=== PATIENT | female | born 1935 | race Caucasian/White ===

== ENCOUNTER 2016-09-16 15:29 | Emergency (ER) | payer MEDICARE, BC ==
[2007-07-04 06:02] VITALS: BP 137/67
[~2016-09-16] VITALS: Ht 154.9 cm; Wt 71.8 kg
[~2016-09-16 15:29] MED LIST: ACID REDUCER; ACTOS30 MG PO; ALLOPURINOL300 MG PO; ASPIRIN 32325 MG/TA1 PO; ASPIRIN 32325 MG/TAB PO; ATACAND 16M16 MG/TAB PO; ATACAND 32 MG PO; ATACAND PO; BENADRYL25 MG PO; BENTYL 20MG TAB20 MG PO; BENTYL 20MG20 MG/TAB PO; BENTYL20 MG PO; BUSPAR10 MG PO; CAL-CITRATE PLU1 TAB PO; CALTRATE 600 +1 TAB PO; CARDI-OMEGA1000 MG PO; CELEXA 20MG20 MG/TAB PO; CELEXA40 MG PO; CIPRO 250MG TA250 MG PO; CLARITIN LIQUI-10 MG PO; COLACE 100100 MG/CAP PO; COZAAR100 MG PO; ECOTRIN325 MG PO; ENTOCORT EC3 MG PO; FISH OIL1000 MG PO; FLAGYL500 MG PO; FLOVENT 220MCG7.9 GM IH; HCTZ12.5TAB PO; HUMIRA40 MG/0.1 SC; HUMIRA40 MG/0.8 MR; INDERAL LA 60MG60 MG PO; INDERAL LA120 MG PO; KLONOPIN 0.5MG0.5 MG PO; KLOR-CON 1010 MEQ PO; LEVBID0.375 MG PO; LEVOTHYROXINE0.05 MG PO; LORTAB PO; MELOXICAM PO; MIRALAX 17GM PK1 PKT PO; MOBIC15 MG PO; NORCO 325 MG-51 TAB PO; NORVASC 5MG5 MG/TAB PO; NORVASC5 MG PO; OMEGA 31000 MG PO; PERCOCET 325 MG1 TA2 PO; PREDNISONE10 MG PO; PREDNISONE20 MG PO; PREMARIN .3MG0.3 MG PO; PREMARIN0.3 MG PO; PRIL40 PO; PRILOSEC 20MG20 MG PO; PROBIOTIC FORMU1 CAP PO; PROZAC 20MG20 MG PO; RT SPIRIVA18 MCG IH; SYNTHROID0.05 MG/TA PO; SYNTHROID0.075 MG/T PO; ULTRAM 50MG TAB50 MG PO; ZOCOR 20MG20 MG PO; ZOCOR 40MG40 MG PO; ZOCOR40 MG PO; ZOFRAN 4MG T4 MG/TAB PO
[2016-09-16 15:38] VITALS: TEMP 97.6
[2016-09-16 16:19] LABS: BASO % 0.4 % (0.0-2.0); EOS # 0.1 (0.0-0.7); EOS % 1.4 % (0-4.0); GRAN % 71.4 % (42.2-75.2); HEMATOCRIT 39.7 % (37.0-47.0); HEMOGLOBIN 13.1 g/dl (12.5-16.0); LYMPH # 1.2 (1.2-3.4); LYMPH % 17.5 % (20.0-51.0); MEAN CELL VOLUME 91 fl (80.0-100.0); MEAN CORPUSCULAR HEMOGLOBIN 30 pg (27.0-31.0); MEAN CORPUSCULAR HGB CONC 33 g/dl (33.0-37.0); MEAN PLATELET VOLUME 9.4 fl (7.4-10.4); MONO # 0.6 (0.1-0.6); MONO % 9.2 % (1.7-9.3); PLATELET COUNT 224 K/mm3 (130-400); RED BLOOD COUNT 4.38 M/mm3 (4.10-5.30)
[2016-09-16 16:34] LABS: ADJUSTED CALCIUM 9.4 mg/dL (8.4-10.2); ALANINE AMINOTRANSFERASE 32 U/L (9-52); ALBUMIN 3.8 gm/dL (3.5-5.0); ALKALINE PHOSPHATASE 108 U/L (50-136); ANION GAP 11 mmol/L (7-16); BILIRUBIN,TOTAL 0.6 mg/dL (0.0-1.0); BLOOD UREA NITROGEN 13 mg/dL (7-17); C-REACTIVE PROTEIN 1.3 mg/dL (0.0-0.9); CALCIUM 9.2 mg/dL (8.4-10.2); CARBON DIOXIDE 22 mmol/L (22-30); CHLORIDE 103 mmol/L (98-107); CREATININE, serum 0.71 mg/dL (0.52-1.25); GLUCOSE 130 mg/dL (74-106); POTASSIUM 3.9 mmol/L (3.4-5.0); SODIUM 136 mmol/L (137-145); TOTAL PROTEIN 6.7 gm/dL (6.4-8.2)
[2016-09-16 17:04] LABS: LIPASE < 10 U/L (23-300)
[2016-09-16 17:32] LABS: PH 7 (5-8); SQUAMOUS EPITHELIAL 0-2 /hpf; URINE APPEARANCE Clear; URINE BACTERIA None Seen /hpf; URINE BILIRUBIN Negative (NEGATIVE); URINE BLOOD Negative (NEGATIVE); URINE COLOR Straw; URINE GLUCOSE Negative (NEGATIVE); URINE KETONE Negative (NEGATIVE); URINE RBC 0-2 /hpf; URINE UROBILINOGEN Negative (NEGATIVE); URINE WBC 0-2 /hpf
[2016-09-16] MEDS ORDERED: PRILOSEC 20MG20 MG PO (17:37)
[2016-09-16 17:47] VITALS: BP 109/81; PULSE 88
[2016-09-17] MEDS ORDERED: HUMIRA40 MG/0.1 SQ (17:04)
[2016-09-17] MEDS ORDERED: PRIL40 PO (17:07)
[2016-09-17] MEDS ORDERED: PREMARIN .3MG0.3 MG PO (18:09)
[2016-09-17] MEDS ORDERED: CITRACAL + D CA1 TAB PO (18:10)
== END 2016-09-16 17:58 | disposition home or self-care (01) ==
LOC: COL.ER 15:29
PROVIDERS: Family Medicine
DX: Z02.89 Encounter for other administrative examinations (principal)
CPT/HCPCS: C9113; J1170; J2405; J7030

== ENCOUNTER 2016-09-17 16:44 | Inpatient (IN) | payer MEDICARE, BC ==
[~2016-09-17] VITALS: Ht 154.9 cm; Wt 70.8 kg
[2016-09-17] MEDS ORDERED: HUMIRA40 MG/0.1 SQ (17:04)
[2016-09-17] MEDS ORDERED: PRIL40 PO (17:07)
[2016-09-17 17:40] LABS: BASO % 0.5 % (0.0-2.0); EOS # 0.1 (0.0-0.7); GRAN # 5.7 (1.4-6.5); GRAN % 70.5 % (42.2-75.2); HEMOGLOBIN 13.2 g/dl (12.5-16.0); LYMPH # 1.5 (1.2-3.4); MEAN CELL VOLUME 90 fl (80.0-100.0); MEAN CORPUSCULAR HEMOGLOBIN 30 pg (27.0-31.0); MEAN CORPUSCULAR HGB CONC 34 g/dl (33.0-37.0); MEAN PLATELET VOLUME 9.5 fl (7.4-10.4); MONO # 0.7 (0.1-0.6); MONO % 8.8 % (1.7-9.3); PLATELET COUNT 214 K/mm3 (130-400); RED BLOOD COUNT 4.34 M/mm3 (4.10-5.30); REDCELL DISTRIBUTION WIDTH-CV 15.2 % (11.5-14.5); WHITE BLOOD COUNT 8.1 K/mm3 (4.8-10.8)
[2016-09-17 17:52] LABS: ADJUSTED CALCIUM 9.4 mg/dL (8.4-10.2); ALANINE AMINOTRANSFERASE 29 U/L (9-52); ALBUMIN 3.6 gm/dL (3.5-5.0); ALKALINE PHOSPHATASE 108 U/L (50-136); ANION GAP 11 mmol/L (7-16); BILIRUBIN,TOTAL 0.7 mg/dL (0.0-1.0); BLOOD UREA NITROGEN 12 mg/dL (7-17); C-REACTIVE PROTEIN 1.2 mg/dL (0.0-0.9); CALCIUM 9.1 mg/dL (8.4-10.2); CARBON DIOXIDE 21 mmol/L (22-30); CHLORIDE 104 mmol/L (98-107); GLUCOSE 116 mg/dL (74-106); SODIUM 136 mmol/L (137-145); TOTAL PROTEIN 6.6 gm/dL (6.4-8.2)
[2016-09-17 17:55] LABS: AMYLASE < 30 U/L (30-110)
[2016-09-17 18:09] LABS: LIPASE < 10 U/L (23-300)
[2016-09-17] MEDS ORDERED: PREMARIN .3MG0.3 MG PO (18:09)
[2016-09-17] MEDS ORDERED: CITRACAL + D CA1 TAB PO (18:10)
[2016-09-17 20:35] VITALS: BP 139/81; PULSE 84; TEMP 102.1
[2016-09-17 21:45] VITALS: BP 132/74; PULSE 107; TEMP 97.8
[2016-09-18] VITALS (7 sets, daily range): BP systolic 104–138; BP diastolic 58–72; PULSE 95–106; TEMP 97.8–98.5
[2016-09-18 07:07] LABS: HEMATOCRIT 37.3 % (37.0-47.0); HEMOGLOBIN 12.4 g/dl (12.5-16.0); MEAN CELL VOLUME 91 fl (80.0-100.0); MEAN CORPUSCULAR HEMOGLOBIN 30 pg (27.0-31.0); MEAN CORPUSCULAR HGB CONC 33 g/dl (33.0-37.0); MEAN PLATELET VOLUME 10.1 fl (7.4-10.4); PLATELET COUNT 205 K/mm3 (130-400); RED BLOOD COUNT 4.12 M/mm3 (4.10-5.30); REDCELL DISTRIBUTION WIDTH-CV 15.1 % (11.5-14.5); WHITE BLOOD COUNT 4.8 K/mm3 (4.8-10.8)
[2016-09-18 07:14] LABS: ADD PATHOLOGY DIFF REVIEW NO
[2016-09-18 07:17] LABS: CREATININE, serum 0.57 mg/dL (0.52-1.25); POTASSIUM 3.9 mmol/L (3.4-5.0)
[2016-09-18 07:47] LABS: BAND 8 % (0-10); NEUTROPHILS 81 % (42.0-75.2); PLATELET ESTIMATE NORMAL (NORMAL); TOTAL CELLS COUNTED 100
[2016-09-19 04:42] VITALS: BP 131/68; PULSE 97; TEMP 98.8
[2016-09-19 08:23] VITALS: BP 137/76; PULSE 98; TEMP 98.3
[2016-09-19 12:49] VITALS: BP 139/66; PULSE 95; TEMP 98.1
[2016-09-19 16:14] VITALS: BP 150/78; PULSE 100; TEMP 97.9
[2016-09-19 20:24] VITALS: BP 136/70; PULSE 94; TEMP 97.9
[2016-09-20 00:08] VITALS: BP 132/72; PULSE 94; TEMP 98
[2016-09-20 08:00] VITALS: BP 135/57; PULSE 100; TEMP 97.8
[2016-09-20 12:18] VITALS: BP 123/73; PULSE 98; TEMP 98.2
[2016-09-20] MEDS ORDERED: PREDNISONE10 MG PO (14:05)
== END 2016-09-20 15:37 | disposition home or self-care (01) | DRG 386 ==
LOC: COL.ER 16:44 → MEDICAL 20:03
PROVIDERS: Emergency Medicine; Nurse Practitioner Family
DX: K50.012 Crohn's disease of small intestine with intestinal obstruction (principal); I10 Essential (primary) hypertension; E11.9 Type 2 diabetes mellitus without complications; Z87.891 Personal history of nicotine dependence
CPT/HCPCS: 99223-AI; 99232-AI; 99239; C9113; G0378; J1170; J2405; J2550; J2765; J2920; J2930; J7030; Q9967

== ENCOUNTER 2017-12-14 12:38 | Outpatient (CLI) | payer MEDICARE, BC ==
[2007-07-04 06:02] VITALS: BP 137/67
[~2017-12-14 12:38] MED LIST changes: +CITRACAL + D CA1 TAB PO; +HUMIRA40 MG/0.1 SQ
[2017-12-14 13:15] LABS: BASO % 0.5 % (0.0-2.0); EOS # 0.1 (0.0-0.7); GRAN # 4.3 (1.4-6.5); LYMPH # 1.5 (1.2-3.4); LYMPH % 22.6 % (20.0-51.0); MEAN CELL VOLUME 89 fl (80.0-100.0); MEAN CORPUSCULAR HGB CONC 32 g/dl (33.0-37.0); MEAN PLATELET VOLUME 9.8 fl (7.4-10.4); MONO # 0.6 (0.1-0.6); MONO % 9.6 % (1.7-9.3); PLATELET COUNT 219 K/mm3 (130-400); RED BLOOD COUNT 3.93 M/mm3 (4.10-5.30); REDCELL DISTRIBUTION WIDTH-CV 13.7 % (11.5-14.5)
[2017-12-14 13:25] LABS: HEMATOCRIT 34.8 % (37.0-47.0); HEMOGLOBIN 11.1 g/dl (12.5-16.0); MEAN CORPUSCULAR HEMOGLOBIN 28 pg (27.0-31.0)
[2017-12-14 13:30] LABS: ALBUMIN 3.6 gm/dL (3.5-5.0); BILIRUBIN,TOTAL 0.3 mg/dL (0.0-1.0); CALCIUM 9.3 mg/dL (8.4-10.2); CREATININE, serum 0.77 mg/dL (0.52-1.25); TOTAL PROTEIN 6.6 gm/dL (6.4-8.2)
[2017-12-14 14:00] VITALS: BP 124/46; PULSE 79; TEMP 97.7
== END 2017-12-14 15:11 | disposition home or self-care (01) ==
LOC: EUO 12:38
PROVIDERS: Internal Medicine
DX: K50.90 Crohn's disease, unspecified, without complications (principal); Z88.5 Allergy status to narcotic agent; Z88.0 Allergy status to penicillin; Z88.8 Allergy status to other drugs, medicaments and biological substances
CPT/HCPCS: J1200; J3380; J7050

== ENCOUNTER 2018-02-08 12:41 | Outpatient (CLI) | payer MEDICARE, BC ==
[2007-07-04 06:02] VITALS: BP 137/67
[~2018-02-08] VITALS: Ht 157.5 cm; Wt 73.0 kg
[2018-02-08 13:11] LABS: BASO % 0.4 % (0.0-2.0); EOS # 0.2 (0.0-0.7); GRAN # 3.2 (1.4-6.5); GRAN % 64.2 % (42.2-75.2); HEMOGLOBIN 11.2 g/dl (12.5-16.0); LYMPH # 1.1 (1.2-3.4); LYMPH % 21.3 % (20.0-51.0); MEAN CELL VOLUME 88 fl (80.0-100.0); MEAN CORPUSCULAR HEMOGLOBIN 28 pg (27.0-31.0); MEAN CORPUSCULAR HGB CONC 33 g/dl (33.0-37.0); MEAN PLATELET VOLUME 9.9 fl (7.4-10.4); MONO # 0.5 (0.1-0.6); MONO % 10.9 % (1.7-9.3); PLATELET COUNT 193 K/mm3 (130-400); RED BLOOD COUNT 3.94 M/mm3 (4.10-5.30); REDCELL DISTRIBUTION WIDTH-CV 15.4 % (11.5-14.5)
[2018-02-08 13:12] LABS: HEMATOCRIT 34.5 % (37.0-47.0)
[2018-02-08 13:17] LABS: ALBUMIN 3.4 gm/dL (3.5-5.0); BILIRUBIN,TOTAL 0.3 mg/dL (0.0-1.0); CREATININE, serum 0.75 mg/dL (0.52-1.25); POTASSIUM 3.5 mmol/L (3.4-5.0); TOTAL PROTEIN 6.7 gm/dL (6.4-8.2)
[2018-02-08 14:00] VITALS: BP 141/62; PULSE 86; TEMP 98.2
== END 2018-02-08 14:49 | disposition home or self-care (01) ==
LOC: EUO 12:41
PROVIDERS: Internal Medicine
DX: K50.90 Crohn's disease, unspecified, without complications (principal)
CPT/HCPCS: J1200; J3380; J7050

== ENCOUNTER 2018-04-05 12:50 | Outpatient (CLI) | payer MEDICARE, BC ==
[2007-07-04 06:02] VITALS: BP 137/67
[~2018-04-05] VITALS: Ht 157.5 cm; Wt 75.0 kg
[2018-04-05 13:19] LABS: BASO # 0.1 (0.0-0.2); BASO % 0.7 % (0.0-2.0); EOS # 0.2 (0.0-0.7); EOS % 2.4 % (0-4.0); GRAN # 4.6 (1.4-6.5); GRAN % 67.6 % (42.2-75.2); HEMATOCRIT 37.4 % (37.0-47.0); HEMOGLOBIN 12.3 g/dl (12.5-16.0); LYMPH # 1.5 (1.2-3.4); LYMPH % 21.4 % (20.0-51.0); MEAN CELL VOLUME 88 fl (80.0-100.0); MEAN CORPUSCULAR HEMOGLOBIN 29 pg (27.0-31.0); MEAN CORPUSCULAR HGB CONC 33 g/dl (33.0-37.0); MEAN PLATELET VOLUME 10.2 fl (7.4-10.4); MONO # 0.5 (0.1-0.6); MONO % 7.8 % (1.7-9.3); PLATELET COUNT 198 K/mm3 (130-400); RED BLOOD COUNT 4.24 M/mm3 (4.10-5.30); REDCELL DISTRIBUTION WIDTH-CV 14.4 % (11.5-14.5)
[2018-04-05 13:26] LABS: ALBUMIN 3.9 gm/dL (3.5-5.0); BILIRUBIN,TOTAL 0.5 mg/dL (0.0-1.0); CALCIUM 9.1 mg/dL (8.4-10.2); CREATININE, serum 0.78 mg/dL (0.52-1.25); TOTAL PROTEIN 7.1 gm/dL (6.4-8.2)
[2018-04-05 13:44] VITALS: BP 102/52; PULSE 62; TEMP 98
== END 2018-04-05 14:59 | disposition home or self-care (01) ==
LOC: EUO 12:50
PROVIDERS: Internal Medicine
DX: K50.90 Crohn's disease, unspecified, without complications (principal); Z79.899 Other long term (current) drug therapy
CPT/HCPCS: J1200; J3380; J7050

== ENCOUNTER 2018-05-31 12:56 | Outpatient (CLI) | payer MEDICARE, BC ==
[2007-07-04 06:02] VITALS: BP 137/67
[~2018-05-31] VITALS: Ht 157.5 cm; Wt 72.9 kg
[2018-05-31 13:26] LABS: BASO % 0.5 % (0.0-2.0); EOS # 0.1 (0.0-0.7); EOS % 1.4 % (0-4.0); GRAN # 4.5 (1.4-6.5); GRAN % 69.8 % (42.2-75.2); HEMATOCRIT 37.1 % (37.0-47.0); LYMPH # 1.3 (1.2-3.4); LYMPH % 19.5 % (20.0-51.0); MEAN CELL VOLUME 90 fl (80.0-100.0); MEAN CORPUSCULAR HEMOGLOBIN 29 pg (27.0-31.0); MEAN CORPUSCULAR HGB CONC 32 g/dl (33.0-37.0); MEAN PLATELET VOLUME 9.5 fl (7.4-10.4); MONO # 0.6 (0.1-0.6); MONO % 8.5 % (1.7-9.3); PLATELET COUNT 203 K/mm3 (130-400); RED BLOOD COUNT 4.14 M/mm3 (4.10-5.30)
[2018-05-31 13:40] LABS: ALBUMIN 3.8 gm/dL (3.5-5.0); BILIRUBIN,TOTAL 0.3 mg/dL (0.0-1.0); CALCIUM 9.2 mg/dL (8.4-10.2); CREATININE, serum 0.75 mg/dL (0.52-1.25); POTASSIUM 3.8 mmol/L (3.4-5.0); TOTAL PROTEIN 6.7 gm/dL (6.4-8.2)
[2018-05-31 14:14] VITALS: BP 132/61; PULSE 74; TEMP 97.4
== END 2018-05-31 14:16 | disposition home or self-care (01) ==
LOC: EUO 12:56
PROVIDERS: Internal Medicine
DX: K50.90 Crohn's disease, unspecified, without complications (principal)
CPT/HCPCS: J1200; J3380; J7050

== ENCOUNTER 2018-07-06 09:53 | Emergency (ER) | payer MEDICARE, BC ==
[2007-07-04 06:02] VITALS: BP 137/67
[~2018-07-06] VITALS: Ht 157.5 cm; Wt 74.1 kg
[2018-07-06 09:58] VITALS: TEMP 97
[2018-07-06 10:50] LABS: BASO % 0.3 % (0.0-2.0); EOS % 0.1 % (0-4.0); GRAN # 7.6 (1.4-6.5); GRAN % 84.3 % (42.2-75.2); HEMATOCRIT 41.8 % (37.0-47.0); HEMOGLOBIN 14.1 g/dl (12.5-16.0); LYMPH % 10.7 % (20.0-51.0); MEAN CELL VOLUME 88 fl (80.0-100.0); MEAN CORPUSCULAR HEMOGLOBIN 30 pg (27.0-31.0); MEAN CORPUSCULAR HGB CONC 34 g/dl (33.0-37.0); MEAN PLATELET VOLUME 9.6 fl (7.4-10.4); MONO # 0.4 (0.1-0.6); MONO % 4.3 % (1.7-9.3); PLATELET COUNT 226 K/mm3 (130-400); RED BLOOD COUNT 4.73 M/mm3 (4.10-5.30); REDCELL DISTRIBUTION WIDTH-CV 13.6 % (11.5-14.5)
[2018-07-06 11:03] LABS: ALANINE AMINOTRANSFERASE 30 U/L (9-52); ALBUMIN 4.4 gm/dL (3.5-5.0); ALKALINE PHOSPHATASE 125 U/L (50-136); ANION GAP 11 mmol/L (7-16); AST,SGOT 20 U/L (15-37); BILIRUBIN,TOTAL 0.7 mg/dL (0.0-1.0); BLOOD UREA NITROGEN 18 mg/dL (7-17); CALCIUM 9.8 mg/dL (8.4-10.2); CARBON DIOXIDE 24 mmol/L (22-30); CHLORIDE 106 mmol/L (98-107); CREATININE, serum 0.63 mg/dL (0.52-1.25); GLUCOSE 126 mg/dL (74-106); POTASSIUM 3.5 mmol/L (3.4-5.0); SODIUM 141 mmol/L (137-145); TOTAL PROTEIN 7.8 gm/dL (6.4-8.2)
[2018-07-06 11:06] LABS: C-REACTIVE PROTEIN < 0.5 mg/dL (0.0-0.9)
[2018-07-06 11:12] LABS: TROPONIN-I < 0.012 ng/mL (0.000-0.034)
[2018-07-06 11:19] LABS: COLLECTION METHOD CLEAN CATCH
[2018-07-06 11:30] LABS: TSH w REFLEX 0.977 uIU/mL (0.465-4.680)
[2018-07-06] MEDS ORDERED: PRIL40 PO (11:36)
[2018-07-06 11:38] LABS: PH 7 (5-8); SQUAMOUS EPITHELIAL 0-2 /hpf; URINE APPEARANCE Clear; URINE BACTERIA None Seen /hpf; URINE BILIRUBIN Negative (NEGATIVE); URINE BLOOD Negative (NEGATIVE); URINE COLOR Yellow; URINE GLUCOSE Negative (NEGATIVE); URINE KETONE Trace (NEGATIVE); URINE LEUKOCYTE ESTERASE Negative (NEGATIVE); URINE NITRATE Negative (NEGATIVE); URINE PROTEIN(semi-quant) Negative (NEGATIVE); URINE UROBILINOGEN Negative (NEGATIVE)
[2018-07-06] MEDS ORDERED: HCTZ12.5TAB PO (11:40)
[2018-07-06] MEDS ORDERED: ANTIVERT 12.512.5 MG PO (12:26)
[2018-07-06 13:17] VITALS: BP 161/89; PULSE 80
== END 2018-07-06 13:10 | disposition home or self-care (01) ==
LOC: COL.ER 09:53
PROVIDERS: Physician Assistant
DX: R42 Dizziness and giddiness (principal); E11.9 Type 2 diabetes mellitus without complications; I10 Essential (primary) hypertension; E03.9 Hypothyroidism, unspecified; K50.90 Crohn's disease, unspecified, without complications; M19.90 Unspecified osteoarthritis, unspecified site; Z88.0 Allergy status to penicillin; Z79.51 Long term (current) use of inhaled steroids
CPT/HCPCS: J2060; J7030

== ENCOUNTER 2018-07-26 12:44 | Outpatient (CLI) | payer MEDICARE, BC ==
[2007-07-04 06:02] VITALS: BP 137/67
[~2018-07-26] VITALS: Ht 157.5 cm; Wt 76.0 kg
[~2018-07-26 12:44] MED LIST changes: +ANTIVERT 12.512.5 MG PO
[2018-07-26 13:11] LABS: BASO # 0.1 (0.0-0.2); BASO % 0.7 % (0.0-2.0); EOS # 0.2 (0.0-0.7); EOS % 2.6 % (0-4.0); GRAN # 4.6 (1.4-6.5); GRAN % 66.2 % (42.2-75.2); HEMOGLOBIN 11.8 g/dl (12.5-16.0); LYMPH # 1.6 (1.2-3.4); LYMPH % 22.8 % (20.0-51.0); MEAN CELL VOLUME 93 fl (80.0-100.0); MEAN CORPUSCULAR HEMOGLOBIN 30 pg (27.0-31.0); MEAN CORPUSCULAR HGB CONC 32 g/dl (33.0-37.0); MEAN PLATELET VOLUME 9.6 fl (7.4-10.4); MONO # 0.5 (0.1-0.6); MONO % 7.4 % (1.7-9.3); PLATELET COUNT 218 K/mm3 (130-400); RED BLOOD COUNT 3.94 M/mm3 (4.10-5.30); REDCELL DISTRIBUTION WIDTH-CV 13.6 % (11.5-14.5)
[2018-07-26 13:12] LABS: HEMATOCRIT 36.6 % (37.0-47.0)
[2018-07-26] MEDS ORDERED: VITAMIN D 400400 IU PO (13:14)
[2018-07-26] MEDS ORDERED: PRIL40 PO (13:15)
[2018-07-26 13:22] LABS: ALBUMIN 3.7 gm/dL (3.5-5.0); BILIRUBIN,TOTAL 0.3 mg/dL (0.0-1.0); CALCIUM 9.3 mg/dL (8.4-10.2); CREATININE, serum 0.94 mg/dL (0.52-1.25); POTASSIUM 3.8 mmol/L (3.4-5.0); TOTAL PROTEIN 6.7 gm/dL (6.4-8.2)
[2018-07-26 14:25] VITALS: BP 123/52; PULSE 90; TEMP 98.7
[2018-07-26 15:02] VITALS: BP 122/50; PULSE 80; TEMP 98.5
== END 2018-07-26 15:16 | disposition home or self-care (01) ==
LOC: EUO 12:44
PROVIDERS: Internal Medicine
DX: K50.90 Crohn's disease, unspecified, without complications (principal); Z79.899 Other long term (current) drug therapy
CPT/HCPCS: J1200; J3380; J7050

== ENCOUNTER 2018-09-20 12:46 | Outpatient (CLI) | payer MEDICARE, BC ==
[2007-07-04 06:02] VITALS: BP 137/67
[~2018-09-20] VITALS: Ht 157.5 cm; Wt 78.7 kg
[~2018-09-20 12:46] MED LIST changes: +VITAMIN D 400400 IU PO
[2018-09-20 13:16] LABS: BASO % 0.6 % (0.0-2.0); EOS # 0.2 (0.0-0.7); EOS % 2.3 % (0-4.0); GRAN # 4.7 (1.4-6.5); GRAN % 67.6 % (42.2-75.2); HEMATOCRIT 37.5 % (37.0-47.0); HEMOGLOBIN 12.3 g/dl (12.5-16.0); LYMPH # 1.4 (1.2-3.4); LYMPH % 20.2 % (20.0-51.0); MEAN CELL VOLUME 92 fl (80.0-100.0); MEAN CORPUSCULAR HEMOGLOBIN 30 pg (27.0-31.0); MEAN CORPUSCULAR HGB CONC 33 g/dl (33.0-37.0); MEAN PLATELET VOLUME 9.9 fl (7.4-10.4); MONO # 0.6 (0.1-0.6); PLATELET COUNT 204 K/mm3 (130-400); RED BLOOD COUNT 4.07 M/mm3 (4.10-5.30); REDCELL DISTRIBUTION WIDTH-CV 13.7 % (11.5-14.5)
[2018-09-20 13:28] LABS: ALBUMIN 3.8 gm/dL (3.5-5.0); BILIRUBIN,TOTAL 0.3 mg/dL (0.0-1.0); CALCIUM 9.3 mg/dL (8.4-10.2); CREATININE, serum 0.84 mg/dL (0.52-1.25); POTASSIUM 3.9 mmol/L (3.4-5.0); TOTAL PROTEIN 7.1 gm/dL (6.4-8.2)
[2018-09-20 14:58] VITALS: BP 126/38; PULSE 73; TEMP 98
== END 2018-09-20 15:47 | disposition home or self-care (01) ==
LOC: EUO 12:46
PROVIDERS: Internal Medicine
DX: K50.818 Crohn's disease of both small and large intestine with other complication (principal); Z79.899 Other long term (current) drug therapy
CPT/HCPCS: J1200; J3380; J7050

== ENCOUNTER 2018-11-15 13:41 | Outpatient (CLI) | payer MEDICARE, BC ==
[2007-07-04 06:02] VITALS: BP 137/67
[~2018-11-15] VITALS: Ht 157.5 cm; Wt 80.7 kg
[2018-11-15 14:06] LABS: BASO % 0.4 % (0.0-2.0); EOS # 0.1 (0.0-0.7); EOS % 1.4 % (0-4.0); GRAN % 68.2 % (42.2-75.2); HEMOGLOBIN 12.1 g/dl (12.5-16.0); LYMPH # 1.5 (1.2-3.4); LYMPH % 20.9 % (20.0-51.0); MEAN CELL VOLUME 91 fl (80.0-100.0); MEAN CORPUSCULAR HEMOGLOBIN 30 pg (27.0-31.0); MEAN CORPUSCULAR HGB CONC 33 g/dl (33.0-37.0); MEAN PLATELET VOLUME 9.8 fl (7.4-10.4); MONO # 0.7 (0.1-0.6); MONO % 8.8 % (1.7-9.3); PLATELET COUNT 202 K/mm3 (130-400); RED BLOOD COUNT 4.02 M/mm3 (4.10-5.30); REDCELL DISTRIBUTION WIDTH-CV 13.4 % (11.5-14.5)
[2018-11-15 14:07] LABS: HEMATOCRIT 36.7 % (37.0-47.0)
[2018-11-15 14:15] LABS: ALBUMIN 3.8 gm/dL (3.5-5.0); BILIRUBIN,TOTAL 0.3 mg/dL (0.0-1.0); CALCIUM 9.3 mg/dL (8.4-10.2); CREATININE, serum 0.8 (0.52-1.25); POTASSIUM 3.8 mmol/L (3.4-5.0); TOTAL PROTEIN 6.8 gm/dL (6.4-8.2)
[2018-11-15 15:30] VITALS: BP 128/56; PULSE 66; TEMP 98.4
== END 2018-11-15 15:50 | disposition home or self-care (01) ==
LOC: EUO 13:41
PROVIDERS: Internal Medicine
DX: K50.90 Crohn's disease, unspecified, without complications (principal); Z79.899 Other long term (current) drug therapy
CPT/HCPCS: J1200; J3380; J7050

== ENCOUNTER 2019-01-10 13:55 | Outpatient (CLI) | payer MEDICARE, BC ==
[2007-07-04 06:02] VITALS: BP 137/67
[~2019-01-10] VITALS: Ht 157.5 cm; Wt 81.3 kg
[2019-01-10 14:39] LABS: BASO % 0.4 % (0.0-2.0); EOS # 0.1 (0.0-0.7); EOS % 1.9 % (0-4.0); GRAN # 4.6 (1.4-6.5); GRAN % 66.9 % (42.2-75.2); LYMPH # 1.4 (1.2-3.4); LYMPH % 20.6 % (20.0-51.0); MEAN CELL VOLUME 92 fl (80.0-100.0); MEAN CORPUSCULAR HEMOGLOBIN 31 pg (27.0-31.0); MEAN CORPUSCULAR HGB CONC 33 g/dl (33.0-37.0); MEAN PLATELET VOLUME 9.6 fl (7.4-10.4); MONO # 0.7 (0.1-0.6); MONO % 9.8 % (1.7-9.3); PLATELET COUNT 200 K/mm3 (130-400); RED BLOOD COUNT 3.89 M/mm3 (4.10-5.30); REDCELL DISTRIBUTION WIDTH-CV 13.4 % (11.5-14.5)
[2019-01-10 14:48] LABS: ALBUMIN 3.7 gm/dL (3.5-5.0); BILIRUBIN,TOTAL 0.4 mg/dL (0.0-1.0); CALCIUM 9.3 mg/dL (8.4-10.2); CREATININE, serum 0.89 (0.52-1.25); HEMATOCRIT 35.9 % (37.0-47.0); POTASSIUM 3.8 mmol/L (3.4-5.0); TOTAL PROTEIN 6.7 gm/dL (6.4-8.2)
[2019-01-10 15:58] VITALS: BP 110/48; PULSE 79; TEMP 98
== END 2019-01-10 18:00 | disposition home or self-care (01) ==
LOC: EUO 13:55
PROVIDERS: Internal Medicine
DX: K50.90 Crohn's disease, unspecified, without complications (principal); Z79.899 Other long term (current) drug therapy
CPT/HCPCS: J1200; J3380; J7050

== ENCOUNTER → 2019-01-19 | Outpatient (CLI) | payer MEDICARE, BC ==
[2019-01-19 17:31] LABS: BASO % 0.5 % (0.0-2.0); EOS # 0.1 (0.0-0.7); EOS % 1.5 % (0-4.0); GRAN # 5.5 (1.4-6.5); GRAN % 68.5 % (42.2-75.2); HEMOGLOBIN 12.1 g/dl (12.5-16.0); LYMPH # 1.5 (1.2-3.4); LYMPH % 18.5 % (20.0-51.0); MEAN CELL VOLUME 93 fl (80.0-100.0); MEAN CORPUSCULAR HEMOGLOBIN 31 pg (27.0-31.0); MEAN CORPUSCULAR HGB CONC 33 g/dl (33.0-37.0); MEAN PLATELET VOLUME 10.4 fl (7.4-10.4); MONO # 0.9 (0.1-0.6); MONO % 10.8 % (1.7-9.3); PLATELET COUNT 213 K/mm3 (130-400); RED BLOOD COUNT 3.92 M/mm3 (4.10-5.30); REDCELL DISTRIBUTION WIDTH-CV 13.3 % (11.5-14.5)
[2019-01-19 17:48] LABS: HEMATOCRIT 36.3 % (37.0-47.0)
[2019-01-19 17:56] LABS: ALANINE AMINOTRANSFERASE 11 U/L (9-52); ALBUMIN 3.9 gm/dL (3.5-5.0); ALKALINE PHOSPHATASE 117 U/L (50-136); ANION GAP 12 mmol/L (7-16); AST,SGOT 18 U/L (15-37); BILIRUBIN,TOTAL 0.3 mg/dL (0.0-1.0); BLOOD UREA NITROGEN 20 mg/dL (7-17); CALCIUM 9.4 mg/dL (8.4-10.2); CARBON DIOXIDE 26 mmol/L (22-30); CHLORIDE 100 mmol/L (98-107); CREATININE, serum 0.95 (0.52-1.25); GLUCOSE 107 mg/dL (74-106); LIPASE 47 U/L (23-300); POTASSIUM 4.1 mmol/L (3.4-5.0); SODIUM 137 mmol/L (137-145)
[2019-01-19 18:21] LABS: TROPONIN-I < 0.012 ng/mL (0.000-0.035)
== END ==
LOC: ZCOL.LAB 16:45
PROVIDERS: Nurse Practitioner Family
DX: R07.9 Chest pain, unspecified (principal)

== ENCOUNTER 2019-03-07 13:49 | Outpatient (CLI) | payer MEDICARE, BC ==
[2007-07-04 06:02] VITALS: BP 137/67
[~2019-03-07] VITALS: Ht 157.5 cm; Wt 80.0 kg
[2019-03-07 14:15] VITALS: BP 162/78; PULSE 52; TEMP 98
[2019-03-07 14:16] LABS: BASO % 0.5 % (0.0-2.0); EOS # 0.1 (0.0-0.7); EOS % 1.8 % (0-4.0); GRAN # 5.4 (1.4-6.5); GRAN % 68.3 % (42.2-75.2); HEMATOCRIT 37.7 % (37.0-47.0); HEMOGLOBIN 12.5 g/dl (12.5-16.0); LYMPH # 1.5 (1.2-3.4); LYMPH % 19.5 % (20.0-51.0); MEAN CELL VOLUME 94 fl (80.0-100.0); MEAN CORPUSCULAR HEMOGLOBIN 31 pg (27.0-31.0); MEAN CORPUSCULAR HGB CONC 33 g/dl (33.0-37.0); MEAN PLATELET VOLUME 10.9 fl (7.4-10.4); MONO # 0.8 (0.1-0.6); MONO % 9.6 % (1.7-9.3); PLATELET COUNT 244 K/mm3 (130-400); RED BLOOD COUNT 4.02 M/mm3 (4.10-5.30); REDCELL DISTRIBUTION WIDTH-CV 12.8 % (11.5-14.5)
[2019-03-07 15:33] LABS: ALBUMIN 3.9 gm/dL (3.5-5.0); BILIRUBIN,TOTAL 0.4 mg/dL (0.0-1.0); CALCIUM 9.4 mg/dL (8.4-10.2); CREATININE, serum 0.82 (0.52-1.25)
[2019-03-07 16:27] VITALS: BP 167/79; PULSE 56; TEMP 98
== END 2019-03-07 16:32 | disposition home or self-care (01) ==
LOC: EUO 13:49
PROVIDERS: Internal Medicine
DX: K50.90 Crohn's disease, unspecified, without complications (principal); Z79.899 Other long term (current) drug therapy
CPT/HCPCS: J3380

== ENCOUNTER → 2019-04-07 | Outpatient (CLI) | payer MEDICARE, BC | LOC: MC.RAD 04-05 13:00 | DX: R07.89 Other chest pain (principal) | CPT/HCPCS: G0279 ==

== ENCOUNTER → 2019-04-11 | Outpatient (CLI) | payer MEDICARE, BC | LOC: COL.RAD 08:15 | DX: K21.9 Gastro-esophageal reflux disease without esophagitis (principal); K22.8 Other specified diseases of esophagus ==

== ENCOUNTER 2019-05-02 13:46 | Outpatient (CLI) | payer MEDICARE, BC ==
[2007-07-04 06:02] VITALS: BP 137/67
[~2019-05-02] VITALS: Ht 157.5 cm; Wt 80.2 kg
[2019-05-02 14:20] LABS: BASO % 0.5 % (0.0-2.0); EOS # 0.1 (0.0-0.7); EOS % 1.3 % (0-4.0); GRAN # 5.7 (1.4-6.5); GRAN % 72.7 % (42.2-75.2); HEMATOCRIT 37.6 % (37.0-47.0); HEMOGLOBIN 12.6 g/dl (12.5-16.0); LYMPH # 1.4 (1.2-3.4); LYMPH % 17.2 % (20.0-51.0); MEAN CELL VOLUME 94 fl (80.0-100.0); MEAN CORPUSCULAR HEMOGLOBIN 31 pg (27.0-31.0); MEAN CORPUSCULAR HGB CONC 34 g/dl (33.0-37.0); MEAN PLATELET VOLUME 9.4 fl (7.4-10.4); MONO # 0.6 (0.1-0.6); MONO % 7.9 % (1.7-9.3); PLATELET COUNT 205 K/mm3 (130-400); RED BLOOD COUNT 4.02 M/mm3 (4.10-5.30); REDCELL DISTRIBUTION WIDTH-CV 13.3 % (11.5-14.5)
[2019-05-02 14:23] VITALS: BP 148/63; PULSE 16; PULSE 85; TEMP 98.5
[2019-05-02 14:27] LABS: ALBUMIN 3.9 gm/dL (3.5-5.0); BILIRUBIN,TOTAL 0.3 mg/dL (0.0-1.0); CALCIUM 9.2 mg/dL (8.4-10.2); CREATININE, serum 0.91 (0.52-1.25); TOTAL PROTEIN 6.9 gm/dL (6.4-8.2)
[2019-05-02 15:43] VITALS: BP 133/55; PULSE 75; TEMP 97.9
== END 2019-05-02 15:47 | disposition home or self-care (01) ==
LOC: EUO 13:46
PROVIDERS: Internal Medicine
DX: K50.90 Crohn's disease, unspecified, without complications (principal); Z79.899 Other long term (current) drug therapy
CPT/HCPCS: J1200; J3380; J7050

== ENCOUNTER 2019-06-27 13:34 | Outpatient (CLI) | payer MEDICARE, BC ==
[2007-07-04 06:02] VITALS: BP 137/67
[~2019-06-27] VITALS: Ht 157.5 cm; Wt 80.3 kg
[2019-06-27 14:04] LABS: BASO % 0.3 % (0.0-2.0); EOS # 0.2 (0.0-0.7); EOS % 1.3 % (0-4.0); GRAN # 8.5 (1.4-6.5); GRAN % 71.7 % (42.2-75.2); HEMATOCRIT 41.4 % (37.0-47.0); HEMOGLOBIN 13.9 g/dl (12.5-16.0); LYMPH # 2.2 (1.2-3.4); LYMPH % 18.2 % (20.0-51.0); MEAN CELL VOLUME 95 fl (80.0-100.0); MEAN CORPUSCULAR HEMOGLOBIN 32 pg (27.0-31.0); MEAN CORPUSCULAR HGB CONC 34 g/dl (33.0-37.0); MEAN PLATELET VOLUME 9.4 fl (7.4-10.4); MONO # 0.9 (0.1-0.6); MONO % 7.5 % (1.7-9.3); PLATELET COUNT 282 K/mm3 (130-400); RED BLOOD COUNT 4.35 M/mm3 (4.10-5.30); REDCELL DISTRIBUTION WIDTH-CV 13.4 % (11.5-14.5)
[2019-06-27 14:13] LABS: ALBUMIN 4.3 gm/dL (3.5-5.0); BILIRUBIN,TOTAL 0.5 mg/dL (0.0-1.0); CALCIUM 9.6 mg/dL (8.4-10.2); POTASSIUM 3.6 mmol/L (3.4-5.0); TOTAL PROTEIN 7.6 gm/dL (6.4-8.2)
[2019-06-27 15:23] VITALS: BP 114/55; PULSE 83; TEMP 98
[2019-06-27 15:55] VITALS: BP 133/52; PULSE 78; TEMP 98
== END 2019-06-27 15:58 | disposition home or self-care (01) ==
LOC: EUO 13:34
PROVIDERS: Internal Medicine Gastroenterology
DX: K50.818 Crohn's disease of both small and large intestine with other complication (principal); Z79.899 Other long term (current) drug therapy
CPT/HCPCS: J1200; J3380; J7050

== ENCOUNTER → 2019-07-17 | Outpatient (CLI) | payer MEDICARE, BC | LOC: COL.CARD 12:56 | DX: R55 Syncope and collapse (principal) ==

== ENCOUNTER → 2019-07-21 | Outpatient (CLI) | payer MEDICARE, BC ==
[2019-07-21 13:36] LABS: CALCIUM 9.6 mg/dL (8.4-10.2); CREATININE, serum 0.81 (0.52-1.25)
== END ==
LOC: ZCOL.LAB 13:12
PROVIDERS: Nurse Practitioner Family
DX: E78.1 Pure hyperglyceridemia (principal)

== ENCOUNTER → 2019-08-18 | Outpatient (CLI) | payer MEDICARE, BC | LOC: COL.RAD 13:37 | DX: G31.9 Degenerative disease of nervous system, unspecified (principal); R29.898 Other symptoms and signs involving the musculoskeletal system ==

== ENCOUNTER 2019-08-22 13:33 | Outpatient (CLI) | payer MEDICARE, BC ==
[2007-07-04 06:02] VITALS: BP 137/67
[~2019-08-22] VITALS: Ht 157.5 cm; Wt 83.2 kg
[2019-08-22 13:59] LABS: BASO % 0.5 % (0.0-2.0); EOS # 0.1 (0.0-0.7); EOS % 1.6 % (0-4.0); GRAN # 6.1 (1.4-6.5); GRAN % 68.7 % (42.2-75.2); HEMATOCRIT 39.6 % (37.0-47.0); LYMPH # 1.9 (1.2-3.4); LYMPH % 21.7 % (20.0-51.0); MEAN CELL VOLUME 97 fl (80.0-100.0); MEAN CORPUSCULAR HEMOGLOBIN 32 pg (27.0-31.0); MEAN CORPUSCULAR HGB CONC 33 g/dl (33.0-37.0); MEAN PLATELET VOLUME 9.7 fl (7.4-10.4); MONO # 0.6 (0.1-0.6); MONO % 7.2 % (1.7-9.3); PLATELET COUNT 248 K/mm3 (130-400); RED BLOOD COUNT 4.09 M/mm3 (4.10-5.30); REDCELL DISTRIBUTION WIDTH-CV 12.7 % (11.5-14.5)
[2019-08-22 14:08] LABS: ALBUMIN 4.2 gm/dL (3.5-5.0); BILIRUBIN,TOTAL 0.3 mg/dL (0.0-1.0); CALCIUM 9.5 mg/dL (8.4-10.2); CREATININE, serum 0.94 (0.52-1.25); POTASSIUM 3.6 mmol/L (3.4-5.0); TOTAL PROTEIN 7.4 gm/dL (6.4-8.2)
[2019-08-22 14:55] VITALS: BP 122/49; PULSE 66; TEMP 97.8
[2019-08-22 15:15] VITALS: BP 135/55; PULSE 66; TEMP 97.8
== END 2019-08-22 15:20 | disposition home or self-care (01) ==
LOC: EUO 13:33
PROVIDERS: Internal Medicine
DX: K50.90 Crohn's disease, unspecified, without complications (principal)
CPT/HCPCS: J1200; J3380; J7050

== ENCOUNTER → 2019-08-30 | Outpatient (CLI) | payer MEDICARE, BC | LOC: COL.VAS 12:21 | DX: I63.9 Cerebral infarction, unspecified (principal); I65.23 Occlusion and stenosis of bilateral carotid arteries; I08.0 Rheumatic disorders of both mitral and aortic valves ==

== ENCOUNTER 2019-10-17 13:46 | Outpatient (CLI) | payer MEDICARE, BC ==
[2007-07-04 06:02] VITALS: BP 137/67
[~2019-10-17] VITALS: Ht 157.5 cm; Wt 81.6 kg
[2019-10-17 15:18] VITALS: BP 134/77; PULSE 79; TEMP 97.7
[2019-10-17 16:05] VITALS: BP 138/80; PULSE 82; TEMP 97.7
== END 2019-10-17 16:56 | disposition home or self-care (01) ==
LOC: EUO 13:46
DX: K50.90 Crohn's disease, unspecified, without complications (principal); Z79.899 Other long term (current) drug therapy
CPT/HCPCS: J1200; J3380; J7050

== ENCOUNTER 2019-10-30 09:19 | Emergency (ER) | payer MEDICARE, BC ==
[2007-07-04 06:02] VITALS: BP 137/67
[2019-10-30 09:20] VITALS: PULSE 104; TEMP 98.3
[2019-10-30 10:03] LABS: COLLECTION METHOD CLEAN CATCH
[2019-10-30 10:10] LABS: BASO % 0.4 % (0.0-2.0); EOS # 0.1 (0.0-0.7); EOS % 0.5 % (0-4.0); GRAN # 8.5 (1.4-6.5); GRAN % 80.3 % (42.2-75.2); HEMATOCRIT 41.6 % (37.0-47.0); HEMOGLOBIN 13.7 g/dl (12.5-16.0); LYMPH # 1.2 (1.2-3.4); LYMPH % 10.8 % (20.0-51.0); MEAN CELL VOLUME 94 fl (80.0-100.0); MEAN CORPUSCULAR HEMOGLOBIN 31 pg (27.0-31.0); MEAN CORPUSCULAR HGB CONC 33 g/dl (33.0-37.0); MEAN PLATELET VOLUME 9.8 fl (7.4-10.4); MONO # 0.8 (0.1-0.6); MONO % 7.4 % (1.7-9.3); PLATELET COUNT 223 K/mm3 (130-400); RED BLOOD COUNT 4.45 M/mm3 (4.10-5.30); REDCELL DISTRIBUTION WIDTH-CV 12.3 % (11.5-14.5)
[2019-10-30 10:11] LABS: MUCOUS Present /lpf; PH 6 (5-8); SQUAMOUS EPITHELIAL 0-2 /hpf; URINE APPEARANCE Clear; URINE BACTERIA None Seen /hpf; URINE BILIRUBIN Negative (NEGATIVE); URINE BLOOD Negative (NEGATIVE); URINE COLOR Yellow; URINE GLUCOSE Negative (NEGATIVE); URINE KETONE Trace (NEGATIVE); URINE LEUKOCYTE ESTERASE Negative (NEGATIVE); URINE NITRATE Negative (NEGATIVE); URINE PROTEIN(semi-quant) Negative (NEGATIVE); URINE RBC 0-2 /hpf; URINE UROBILINOGEN Negative (NEGATIVE)
[2019-10-30 10:14] LABS: INR 1.1 (0.8-3.0); PROTHROMBIN TIME 12.3 SECONDS (9.7-12.8)
[2019-10-30 10:26] LABS: ALANINE AMINOTRANSFERASE 20 U/L (4-34); ALBUMIN 4.4 gm/dL (3.5-5.0); ALKALINE PHOSPHATASE 112 U/L (50-136); ANION GAP 12 mmol/L (7-16); AST,SGOT 31 U/L (15-37); BILIRUBIN,TOTAL 0.9 mg/dL (0.0-1.0); BLOOD UREA NITROGEN 14 mg/dL (7-17); CALCIUM 9.6 mg/dL (8.4-10.2); CARBON DIOXIDE 23 mmol/L (22-30); CHLORIDE 103 mmol/L (98-107); CREATINE KINASE 421 U/L (30-135); GLUCOSE 126 mg/dL (74-106); POTASSIUM 3.6 mmol/L (3.4-5.0); SODIUM 138 mmol/L (137-145); TOTAL PROTEIN 7.6 gm/dL (6.4-8.2)
[2019-10-30 10:39] LABS: TROPONIN-I < 0.012 ng/mL (0.000-0.035)
[2019-10-30 14:49] VITALS: BP 156/81
== END 2019-10-30 14:49 | disposition short-term general hospital (02) ==
LOC: COL.ER 09:19
PROVIDERS: Emergency Medicine
DX: I63.9 Cerebral infarction, unspecified (principal); I10 Essential (primary) hypertension; K50.90 Crohn's disease, unspecified, without complications; Z79.51 Long term (current) use of inhaled steroids; W19.XXXA Unspecified fall, initial encounter; Y92.129 Unspecified place in nursing home as the place of occurrence of the external cause
CPT/HCPCS: J7030; Q9967

== ENCOUNTER 2019-12-22 14:20 | Outpatient (CLI) | payer MEDICARE, BC ==
[2007-07-04 06:02] VITALS: BP 137/67
[~2019-12-22] VITALS: Ht 157.5 cm; Wt 81.0 kg
[2019-12-22 15:02] LABS: BASO # 0.1 (0.0-0.2); BASO % 0.7 % (0.0-2.0); EOS # 0.2 (0.0-0.7); EOS % 2.2 % (0-4.0); GRAN # 5.2 (1.4-6.5); HEMATOCRIT 37.3 % (37.0-47.0); LYMPH # 1.4 (1.2-3.4); LYMPH % 18.5 % (20.0-51.0); MEAN CELL VOLUME 94 fl (80.0-100.0); MEAN CORPUSCULAR HEMOGLOBIN 30 pg (27.0-31.0); MEAN CORPUSCULAR HGB CONC 32 g/dl (33.0-37.0); MEAN PLATELET VOLUME 10.4 fl (7.4-10.4); MONO # 0.8 (0.1-0.6); MONO % 10.2 % (1.7-9.3); PLATELET COUNT 242 K/mm3 (130-400); RED BLOOD COUNT 3.96 M/mm3 (4.10-5.30); REDCELL DISTRIBUTION WIDTH-CV 13.1 % (11.5-14.5)
[2019-12-22 15:15] LABS: ALBUMIN 3.8 gm/dL (3.5-5.0); BILIRUBIN,TOTAL 0.4 mg/dL (0.0-1.0); CALCIUM 9.2 mg/dL (8.4-10.2); CREATININE, serum 0.75 (0.52-1.25); POTASSIUM 3.7 mmol/L (3.4-5.0)
[2019-12-22 16:00] VITALS: BP 156/70; PULSE 80; TEMP 98.1
== END 2019-12-22 18:00 | disposition home or self-care (01) ==
LOC: EUO 14:20
PROVIDERS: Internal Medicine
DX: K50.90 Crohn's disease, unspecified, without complications (principal); Z79.899 Other long term (current) drug therapy
CPT/HCPCS: J1200; J3380; J7050

== ENCOUNTER 2020-02-16 13:48 | Outpatient (CLI) | payer MEDICARE, BC ==
[2007-07-04 06:02] VITALS: BP 137/67
[2020-02-16 14:41] LABS: BASO # 0.1 (0.0-0.2); BASO % 0.5 % (0.0-2.0); EOS # 0.2 (0.0-0.7); EOS % 1.8 % (0-4.0); GRAN # 6.6 (1.4-6.5); GRAN % 71.9 % (42.2-75.2); HEMATOCRIT 38.5 % (37.0-47.0); HEMOGLOBIN 12.5 g/dl (12.5-16.0); LYMPH # 1.6 (1.2-3.4); MEAN CELL VOLUME 93 fl (80.0-100.0); MEAN CORPUSCULAR HEMOGLOBIN 30 pg (27.0-31.0); MEAN CORPUSCULAR HGB CONC 33 g/dl (33.0-37.0); MEAN PLATELET VOLUME 10.4 fl (7.4-10.4); MONO # 0.8 (0.1-0.6); MONO % 8.6 % (1.7-9.3); PLATELET COUNT 265 K/mm3 (130-400); RED BLOOD COUNT 4.14 M/mm3 (4.10-5.30); REDCELL DISTRIBUTION WIDTH-CV 13.2 % (11.5-14.5)
[2020-02-16 15:09] LABS: ALBUMIN 3.8 gm/dL (3.5-5.0); BILIRUBIN,TOTAL 0.5 mg/dL (0.0-1.0); CALCIUM 9.4 mg/dL (8.4-10.2); CREATININE, serum 0.81 (0.52-1.25); POTASSIUM 3.9 mmol/L (3.4-5.0); TOTAL PROTEIN 6.9 gm/dL (6.4-8.2)
[2020-02-16 15:45] VITALS: BP 143/77; PULSE 62; TEMP 98.5
[2020-02-16 16:02] VITALS: BP 159/82; PULSE 61; TEMP 98.6
[2020-02-16 16:15] VITALS: BP 164/75; PULSE 58; TEMP 98.6
[2020-02-16] MEDS ORDERED: MIRALAX PA17 GM/Dose PO (19:31)
[2020-02-16] MEDS ORDERED: PROAMATINE 5MG T5 MG PO (19:32)
[2020-02-16] MEDS ORDERED: LIPITOR 40MG TA40 MG PO (19:32)
[2020-02-16] MEDS ORDERED: ZOLOFT 25MG25 MG PO (19:33)
[2020-02-16] MEDS ORDERED: PROTONIX 40MG T40 MG PO (19:37)
[2020-02-16] MEDS ORDERED: PLAVIX 75MG TAB75 MG PO (19:38)
[2020-02-16] MEDS ORDERED: MELATONIN5 M1 SL (19:38)
== END 2020-02-16 16:20 | disposition home or self-care (01) ==
LOC: EUO 13:48
PROVIDERS: Internal Medicine
DX: K50.90 Crohn's disease, unspecified, without complications (principal); Z79.899 Other long term (current) drug therapy
CPT/HCPCS: J1200; J3380; J7050

== ENCOUNTER → 2020-04-09 | Outpatient (CLI) | payer MEDICARE, BC ==
[2020-04-05 18:05] LABS: CALCIUM 8.9 mg/dL (8.4-10.2); CREATININE, serum 0.74 (0.52-1.25); POTASSIUM 3.2 mmol/L (3.4-5.0)
[~2020-04-09] MED LIST changes: +LIPITOR 40MG TA40 MG PO; +MELATONIN5 M1 SL; +MIRALAX PA17 GM/Dose PO; +PLAVIX 75MG TAB75 MG PO; +PROAMATINE 5MG T5 MG PO; +PROTONIX 40MG T40 MG PO; +ZOLOFT 25MG25 MG PO
== END ==
LOC: ZCOL.LAB 13:48
PROVIDERS: Internal Medicine Gastroenterology
DX: K92.1 Melena (principal)

== ENCOUNTER 2020-04-12 13:52 | Outpatient (CLI) | payer MEDICARE, BC ==
[2007-07-04 06:02] VITALS: BP 137/67
[2020-04-12 14:22] VITALS: BP 130/49; PULSE 58; TEMP 98.2
[2020-04-12 14:54] LABS: BASO # 0.1 (0.0-0.2); BASO % 0.8 % (0.0-2.0); EOS # 0.3 (0.0-0.7); EOS % 3.3 % (0-4.0); GRAN % 68.3 % (42.2-75.2); HEMOGLOBIN 11.9 g/dl (12.5-16.0); LYMPH # 1.4 (1.2-3.4); LYMPH % 16.2 % (20.0-51.0); MEAN CELL VOLUME 90 fl (80.0-100.0); MEAN CORPUSCULAR HEMOGLOBIN 29 pg (27.0-31.0); MEAN CORPUSCULAR HGB CONC 32 g/dl (33.0-37.0); MEAN PLATELET VOLUME 9.8 fl (7.4-10.4); MONO % 11.1 % (1.7-9.3); PLATELET COUNT 295 K/mm3 (130-400); RED BLOOD COUNT 4.07 M/mm3 (4.10-5.30); REDCELL DISTRIBUTION WIDTH-CV 13.8 % (11.5-14.5)
[2020-04-12 14:57] LABS: HEMATOCRIT 36.8 % (37.0-47.0)
[2020-04-12 15:05] LABS: ALBUMIN 3.5 gm/dL (3.5-5.0); BILIRUBIN,TOTAL 0.5 mg/dL (0.0-1.0); CREATININE, serum 0.77 (0.52-1.25); TOTAL PROTEIN 6.3 gm/dL (6.4-8.2)
[2020-04-12] MEDS ORDERED: K-DUR 10 MEQ T10 MEQ PO (15:27)
[2020-04-12] MEDS ORDERED: ASPIRIN E.C. 8181 MG PO (15:29)
== END 2020-04-12 16:47 | disposition home or self-care (01) ==
LOC: EUO 13:52
PROVIDERS: Internal Medicine
DX: K59.1 Functional diarrhea (principal)
CPT/HCPCS: J1200; J3380; J7050

== ENCOUNTER → 2020-06-05 | Outpatient (CLI) | payer MEDICARE, BC ==
[~2020-06-05] MED LIST changes: +ASPIRIN E.C. 8181 MG PO; +K-DUR 10 MEQ T10 MEQ PO
== END ==
LOC: COL.RAD 14:49
DX: K50.90 Crohn's disease, unspecified, without complications (principal); Z90.49 Acquired absence of other specified parts of digestive tract

== ENCOUNTER 2020-06-07 13:44 | Outpatient (CLI) | payer MEDICARE, BC ==
[2007-07-04 06:02] VITALS: BP 137/67
[2020-06-07 14:38] LABS: BASO % 0.4 % (0.0-2.0); EOS % 0.1 % (0-4.0); GRAN # 9.3 (1.4-6.5); GRAN % 83.2 % (42.2-75.2); HEMOGLOBIN 11.4 g/dl (12.5-16.0); LYMPH # 1.3 (1.2-3.4); LYMPH % 11.2 % (20.0-51.0); MEAN CELL VOLUME 92 fl (80.0-100.0); MEAN CORPUSCULAR HEMOGLOBIN 30 pg (27.0-31.0); MEAN CORPUSCULAR HGB CONC 32 g/dl (33.0-37.0); MEAN PLATELET VOLUME 9.8 fl (7.4-10.4); MONO # 0.5 (0.1-0.6); MONO % 4.7 % (1.7-9.3); PLATELET COUNT 296 K/mm3 (130-400); RED BLOOD COUNT 3.85 M/mm3 (4.10-5.30); REDCELL DISTRIBUTION WIDTH-CV 15.3 % (11.5-14.5)
[2020-06-07 14:39] LABS: HEMATOCRIT 35.3 % (37.0-47.0)
[2020-06-07 14:49] LABS: ALBUMIN 3.6 gm/dL (3.5-5.0); BILIRUBIN,TOTAL 0.6 mg/dL (0.0-1.0); CALCIUM 8.8 mg/dL (8.4-10.2); CREATININE, serum 0.69 (0.52-1.25); POTASSIUM 3.3 mmol/L (3.4-5.0); TOTAL PROTEIN 6.4 gm/dL (6.4-8.2)
[2020-06-07 14:52] VITALS: BP 148/78; PULSE 60; TEMP 98.2
[2020-06-07 16:10] VITALS: BP 148/81; PULSE 60; TEMP 97.4
== END 2020-06-07 16:30 | disposition home or self-care (01) ==
LOC: EUO 13:44
PROVIDERS: Internal Medicine
DX: Z79.899 Other long term (current) drug therapy (principal)
CPT/HCPCS: J1200; J3380; J7050

== ENCOUNTER 2020-07-05 13:57 | Outpatient (CLI) | payer MEDICARE, BC ==
[2007-07-04 06:02] VITALS: BP 137/67
[~2020-07-05] VITALS: Ht 157.5 cm; Wt 71.4 kg
[2020-07-05 14:37] LABS: BASO # 0.1 (0.0-0.2); BASO % 0.6 % (0.0-2.0); EOS # 0.1 (0.0-0.7); EOS % 1.2 % (0-4.0); GRAN # 7.5 (1.4-6.5); GRAN % 78.9 % (42.2-75.2); HEMATOCRIT 39.2 % (37.0-47.0); HEMOGLOBIN 12.7 g/dl (12.5-16.0); LYMPH # 1.3 (1.2-3.4); LYMPH % 13.7 % (20.0-51.0); MEAN CELL VOLUME 96 fl (80.0-100.0); MEAN CORPUSCULAR HEMOGLOBIN 31 pg (27.0-31.0); MEAN CORPUSCULAR HGB CONC 32 g/dl (33.0-37.0); MEAN PLATELET VOLUME 10.6 fl (7.4-10.4); MONO # 0.5 (0.1-0.6); MONO % 5.2 % (1.7-9.3); PLATELET COUNT 276 K/mm3 (130-400); RED BLOOD COUNT 4.09 M/mm3 (4.10-5.30); REDCELL DISTRIBUTION WIDTH-CV 16.5 % (11.5-14.5)
[2020-07-05 14:47] LABS: ALBUMIN 4.2 gm/dL (3.5-5.0); BILIRUBIN,TOTAL 0.6 mg/dL (0.0-1.0); CALCIUM 9.3 mg/dL (8.4-10.2); CREATININE, serum 0.84 (0.52-1.25); POTASSIUM 4.4 mmol/L (3.4-5.0); TOTAL PROTEIN 7.1 gm/dL (6.4-8.2)
[2020-07-05 15:34] VITALS: BP 151/57; PULSE 63; TEMP 97.5
[2020-07-05 16:10] VITALS: BP 153/61; PULSE 61; TEMP 97.5
[2020-07-05] MEDS ORDERED: ORTIKOS9 MG PO (16:30)
== END 2020-07-05 16:30 | disposition home or self-care (01) ==
LOC: EUO 13:57
DX: K51.90 Ulcerative colitis, unspecified, without complications (principal)
CPT/HCPCS: J1200; J3380; J7050

== ENCOUNTER 2020-08-02 13:54 | Outpatient (CLI) | payer MEDICARE, BC ==
[2007-07-04 06:02] VITALS: BP 137/67
[~2020-08-02] VITALS: Ht 157.5 cm; Wt 72.6 kg
[~2020-08-02 13:54] MED LIST changes: +ORTIKOS9 MG PO
[2020-08-02 14:20] LABS: BASO # 0.1 (0.0-0.2); BASO % 0.4 % (0.0-2.0); EOS % 0.2 % (0-4.0); GRAN # 13.8 (1.4-6.5); GRAN % 83.8 % (42.2-75.2); HEMATOCRIT 41.5 % (37.0-47.0); HEMOGLOBIN 13.3 g/dl (12.5-16.0); LYMPH # 1.3 (1.2-3.4); LYMPH % 7.8 % (20.0-51.0); MEAN CELL VOLUME 97 fl (80.0-100.0); MEAN CORPUSCULAR HEMOGLOBIN 31 pg (27.0-31.0); MEAN CORPUSCULAR HGB CONC 32 g/dl (33.0-37.0); MONO # 1.2 (0.1-0.6); MONO % 7.2 % (1.7-9.3); PLATELET COUNT 321 K/mm3 (130-400); RED BLOOD COUNT 4.26 M/mm3 (4.10-5.30); REDCELL DISTRIBUTION WIDTH-CV 14.8 % (11.5-14.5)
[2020-08-02 14:32] VITALS: BP 118/73; PULSE 72; TEMP 98.1
[2020-08-02 14:32] LABS: BILIRUBIN,TOTAL 0.5 mg/dL (0.0-1.0); CALCIUM 9.2 mg/dL (8.4-10.2); CREATININE, serum 0.95 (0.52-1.25); POTASSIUM 4.4 mmol/L (3.4-5.0); TOTAL PROTEIN 6.8 gm/dL (6.4-8.2)
[2020-08-02 16:28] VITALS: BP 157/80; PULSE 82
[2020-08-02 16:38] VITALS: BP 153/84; PULSE 76
[2020-08-02 16:48] VITALS: BP 157/82; PULSE 64; TEMP 97.9
--- NOTE | 2020-08-02 17:11 | NUR ---
IV DC'd with catheter intact, bleeding controlled at site. Pt ambulates out with walker.
== END 2020-08-02 17:12 | disposition home or self-care (01) ==
LOC: EUO 13:54
PROVIDERS: Internal Medicine
DX: K51.90 Ulcerative colitis, unspecified, without complications (principal); Z79.899 Other long term (current) drug therapy
CPT/HCPCS: J1200; J3380; J7050

== ENCOUNTER 2020-08-30 14:03 | Outpatient (CLI) | payer MEDICARE, BC ==
[2007-07-04 06:02] VITALS: BP 137/67
[2020-08-30 14:27] LABS: BASO # 0.1 (0.0-0.2); BASO % 0.4 % (0.0-2.0); EOS # 0.1 (0.0-0.7); EOS % 0.9 % (0-4.0); GRAN # 9.4 (1.4-6.5); HEMATOCRIT 40.3 % (37.0-47.0); HEMOGLOBIN 13.1 g/dl (12.5-16.0); LYMPH # 1.4 (1.2-3.4); MEAN CELL VOLUME 98 fl (80.0-100.0); MEAN CORPUSCULAR HEMOGLOBIN 32 pg (27.0-31.0); MEAN CORPUSCULAR HGB CONC 33 g/dl (33.0-37.0); MONO # 0.9 (0.1-0.6); MONO % 7.3 % (1.7-9.3); PLATELET COUNT 247 K/mm3 (130-400); RED BLOOD COUNT 4.12 M/mm3 (4.10-5.30); REDCELL DISTRIBUTION WIDTH-CV 13.5 % (11.5-14.5)
[2020-08-30 14:40] LABS: ALBUMIN 4.1 gm/dL (3.5-5.0); BILIRUBIN,TOTAL 0.5 mg/dL (0.0-1.0); CALCIUM 9.5 mg/dL (8.4-10.2); CREATININE, serum 0.86 (0.52-1.25); POTASSIUM 4.3 mmol/L (3.4-5.0); TOTAL PROTEIN 7.2 gm/dL (6.4-8.2)
[2020-08-30 15:41] VITALS: BP 130/77; PULSE 67; TEMP 98.8
[2020-08-30 16:49] VITALS: BP 149/80; PULSE 60; TEMP 98.4
== END 2020-08-30 19:08 | disposition home or self-care (01) ==
LOC: EUO 14:03
PROVIDERS: Internal Medicine
DX: K50.90 Crohn's disease, unspecified, without complications (principal); Z79.899 Other long term (current) drug therapy
CPT/HCPCS: J1200; J3380; J7050

== ENCOUNTER 2020-09-27 13:52 | Outpatient (CLI) | payer MEDICARE, BC ==
[2007-07-04 06:02] VITALS: BP 137/67
[~2020-09-27] VITALS: Ht 157.5 cm; Wt 77.5 kg
[2020-09-27 14:22] LABS: BASO % 0.5 % (0.0-2.0); EOS # 0.2 (0.0-0.7); EOS % 2.7 % (0-4.0); GRAN # 5.1 (1.4-6.5); GRAN % 66.9 % (42.2-75.2); HEMATOCRIT 39.1 % (37.0-47.0); HEMOGLOBIN 12.6 g/dl (12.5-16.0); LYMPH # 1.4 (1.2-3.4); LYMPH % 18.8 % (20.0-51.0); MEAN CELL VOLUME 98 fl (80.0-100.0); MEAN CORPUSCULAR HEMOGLOBIN 32 pg (27.0-31.0); MEAN CORPUSCULAR HGB CONC 32 g/dl (33.0-37.0); MEAN PLATELET VOLUME 9.8 fl (7.4-10.4); MONO # 0.8 (0.1-0.6); MONO % 10.7 % (1.7-9.3); PLATELET COUNT 257 K/mm3 (130-400); REDCELL DISTRIBUTION WIDTH-CV 12.7 % (11.5-14.5)
[2020-09-27 14:32] LABS: ALBUMIN 3.8 gm/dL (3.5-5.0); BILIRUBIN,TOTAL 0.5 mg/dL (0.0-1.0); CALCIUM 9.3 mg/dL (8.4-10.2); CREATININE, serum 0.94 (0.52-1.25); POTASSIUM 3.7 mmol/L (3.4-5.0); TOTAL PROTEIN 6.8 gm/dL (6.4-8.2)
[2020-09-27 15:57] VITALS: BP 140/57; PULSE 67; TEMP 98.8
== END 2020-09-27 15:30 | disposition home or self-care (01) ==
LOC: EUO 13:52
PROVIDERS: Internal Medicine
DX: K50.90 Crohn's disease, unspecified, without complications (principal); Z79.899 Other long term (current) drug therapy
CPT/HCPCS: J1200; J3380; J7050

== ENCOUNTER 2020-10-25 15:16 | Outpatient (CLI) | payer MEDICARE, BC ==
[2007-07-04 06:02] VITALS: BP 137/67
[~2020-10-25] VITALS: Ht 157.5 cm; Wt 78.2 kg
[2020-10-25 14:48] LABS: BASO % 0.6 % (0.0-2.0); EOS # 0.2 (0.0-0.7); EOS % 3.2 % (0-4.0); GRAN # 3.8 (1.4-6.5); GRAN % 62.3 % (42.2-75.2); HEMATOCRIT 37.2 % (37.0-47.0); LYMPH # 1.4 (1.2-3.4); LYMPH % 21.9 % (20.0-51.0); MEAN CELL VOLUME 96 fl (80.0-100.0); MEAN CORPUSCULAR HEMOGLOBIN 31 pg (27.0-31.0); MEAN CORPUSCULAR HGB CONC 32 g/dl (33.0-37.0); MEAN PLATELET VOLUME 9.9 fl (7.4-10.4); MONO # 0.7 (0.1-0.6); MONO % 11.7 % (1.7-9.3); PLATELET COUNT 258 K/mm3 (130-400); RED BLOOD COUNT 3.88 M/mm3 (4.10-5.30); REDCELL DISTRIBUTION WIDTH-CV 12.8 % (11.5-14.5)
[2020-10-25 15:08] LABS: ALBUMIN 3.6 gm/dL (3.5-5.0); BILIRUBIN,TOTAL 0.6 mg/dL (0.0-1.0); CALCIUM 8.9 mg/dL (8.4-10.2); CREATININE, serum 0.77 (0.52-1.25); POTASSIUM 4.1 mmol/L (3.4-5.0); TOTAL PROTEIN 6.4 gm/dL (6.4-8.2)
[2020-10-25 16:13] VITALS: BP 138/73; PULSE 67; TEMP 98.2
== END 2020-10-25 17:47 | disposition home or self-care (01) ==
LOC: EUO 15:16
PROVIDERS: Internal Medicine
DX: Z79.899 Other long term (current) drug therapy (principal)
CPT/HCPCS: J1200; J3380; J7050

== ENCOUNTER 2020-11-22 13:46 | Outpatient (CLI) | payer MEDICARE, BC ==
[2007-07-04 06:02] VITALS: BP 137/67
[~2020-11-22] VITALS: Ht 157.5 cm; Wt 76.9 kg
[2020-11-22 14:40] LABS: BASO % 0.5 % (0.0-2.0); EOS # 0.2 (0.0-0.7); EOS % 2.1 % (0-4.0); GRAN # 5.8 (1.4-6.5); GRAN % 69.6 % (42.2-75.2); HEMATOCRIT 39.4 % (37.0-47.0); HEMOGLOBIN 12.3 g/dl (12.5-16.0); LYMPH # 1.5 (1.2-3.4); LYMPH % 18.2 % (20.0-51.0); MEAN CELL VOLUME 97 fl (80.0-100.0); MEAN CORPUSCULAR HEMOGLOBIN 30 pg (27.0-31.0); MEAN CORPUSCULAR HGB CONC 31 g/dl (33.0-37.0); MEAN PLATELET VOLUME 9.9 fl (7.4-10.4); MONO # 0.8 (0.1-0.6); MONO % 9.4 % (1.7-9.3); PLATELET COUNT 253 K/mm3 (130-400); RED BLOOD COUNT 4.07 M/mm3 (4.10-5.30); REDCELL DISTRIBUTION WIDTH-CV 13.2 % (11.5-14.5)
[2020-11-22 15:59] LABS: ALBUMIN 3.6 gm/dL (3.5-5.0); BILIRUBIN,TOTAL 0.3 mg/dL (0.0-1.0); CREATININE, serum 0.81 (0.52-1.25); POTASSIUM 3.8 mmol/L (3.4-5.0); TOTAL PROTEIN 6.5 gm/dL (6.4-8.2)
[2020-11-22 16:00] VITALS: BP 145/80; PULSE 72; TEMP 98.3
[2020-11-22 16:40] VITALS: BP 141/80; PULSE 72; TEMP 97.7
--- NOTE | 2020-11-22 16:40 | NUR ---
Pt escorted out to elevator, she ambulates out with wheeled walker.
== END 2020-11-22 16:41 | disposition home or self-care (01) ==
LOC: EUO 13:46
PROVIDERS: Internal Medicine
DX: K50.80 Crohn's disease of both small and large intestine without complications (principal); Z79.899 Other long term (current) drug therapy
CPT/HCPCS: J1200; J3380; J7050

== ENCOUNTER 2020-12-20 13:45 | Outpatient (CLI) | payer MEDICARE, BC ==
[2007-07-04 06:02] VITALS: BP 137/67
[~2020-12-20] VITALS: Ht 157.5 cm; Wt 74.6 kg
[2020-12-20 14:11] LABS: BASO # 0.1 (0.0-0.2); BASO % 0.6 % (0.0-2.0); EOS # 0.1 (0.0-0.7); EOS % 1.7 % (0-4.0); GRAN # 5.7 (1.4-6.5); GRAN % 69.7 % (42.2-75.2); HEMATOCRIT 37.2 % (37.0-47.0); LYMPH # 1.5 (1.2-3.4); LYMPH % 18.6 % (20.0-51.0); MEAN CELL VOLUME 94 fl (80.0-100.0); MEAN CORPUSCULAR HEMOGLOBIN 30 pg (27.0-31.0); MEAN CORPUSCULAR HGB CONC 32 g/dl (33.0-37.0); MEAN PLATELET VOLUME 9.9 fl (7.4-10.4); MONO # 0.8 (0.1-0.6); MONO % 9.2 % (1.7-9.3); PLATELET COUNT 253 K/mm3 (130-400); RED BLOOD COUNT 3.97 M/mm3 (4.10-5.30); REDCELL DISTRIBUTION WIDTH-CV 13.1 % (11.5-14.5)
[2020-12-20 14:20] LABS: ALBUMIN 3.8 gm/dL (3.5-5.0); BILIRUBIN,TOTAL 0.5 mg/dL (0.0-1.0); CALCIUM 8.9 mg/dL (8.4-10.2); CREATININE, serum 0.76 (0.52-1.25); POTASSIUM 4.2 mmol/L (3.4-5.0)
[2020-12-20 14:50] VITALS: BP 152/72; PULSE 62; TEMP 98
== END 2020-12-20 16:03 | disposition home or self-care (01) ==
LOC: EUO 13:45
PROVIDERS: Internal Medicine
DX: K50.90 Crohn's disease, unspecified, without complications (principal); Z79.899 Other long term (current) drug therapy
CPT/HCPCS: J1200; J3380; J7050

== ENCOUNTER 2021-01-17 13:59 | Outpatient (CLI) | payer MEDICARE, BC ==
[2007-07-04 06:02] VITALS: BP 137/67
[~2021-01-17] VITALS: Ht 157.5 cm; Wt 76.0 kg
[2021-01-17 14:53] LABS: BASO % 0.5 % (0.0-2.0); EOS # 0.1 (0.0-0.7); EOS % 1.4 % (0-4.0); GRAN # 4.9 (1.4-6.5); GRAN % 66.5 % (42.2-75.2); HEMOGLOBIN 11.4 g/dl (12.5-16.0); LYMPH # 1.4 (1.2-3.4); LYMPH % 19.2 % (20.0-51.0); MEAN CELL VOLUME 93 fl (80.0-100.0); MEAN CORPUSCULAR HEMOGLOBIN 30 pg (27.0-31.0); MEAN CORPUSCULAR HGB CONC 32 g/dl (33.0-37.0); MEAN PLATELET VOLUME 10.3 fl (7.4-10.4); MONO # 0.9 (0.1-0.6); MONO % 12.1 % (1.7-9.3); PLATELET COUNT 252 K/mm3 (130-400); RED BLOOD COUNT 3.84 M/mm3 (4.10-5.30); REDCELL DISTRIBUTION WIDTH-CV 13.2 % (11.5-14.5)
[2021-01-17 14:57] LABS: ALBUMIN 3.6 gm/dL (3.5-5.0); BILIRUBIN,TOTAL 0.3 mg/dL (0.0-1.0); CALCIUM 8.7 mg/dL (8.4-10.2); CREATININE, serum 0.72 (0.52-1.25); POTASSIUM 3.7 mmol/L (3.4-5.0); TOTAL PROTEIN 6.6 gm/dL (6.4-8.2)
[2021-01-17 15:04] LABS: HEMATOCRIT 35.7 % (37.0-47.0)
[2021-01-17 16:00] VITALS: BP 146/72; PULSE 66; TEMP 98.6
[2021-01-17] MEDS ORDERED: COLESTID 1GM1 G PO (17:51)
== END 2021-01-17 17:00 | disposition home or self-care (01) ==
LOC: EUO 13:59
PROVIDERS: Internal Medicine
DX: K50.90 Crohn's disease, unspecified, without complications (principal); Z79.899 Other long term (current) drug therapy
CPT/HCPCS: J1200; J3380; J7050

== ENCOUNTER 2021-02-14 13:52 | Outpatient (CLI) | payer MEDICARE, BC ==
[2007-07-04 06:02] VITALS: BP 137/67
[~2021-02-14] VITALS: Ht 157.5 cm; Wt 69.1 kg
[~2021-02-14 13:52] MED LIST changes: +COLESTID 1GM1 G PO
[2021-02-14 14:15] LABS: BASO % 0.8 % (0.0-2.0); EOS # 0.1 (0.0-0.7); EOS % 2.3 % (0-4.0); GRAN # 2.6 (1.4-6.5); GRAN % 51.2 % (42.2-75.2); LYMPH # 1.7 (1.2-3.4); LYMPH % 32.4 % (20.0-51.0); MEAN CELL VOLUME 93 fl (80.0-100.0); MEAN CORPUSCULAR HEMOGLOBIN 29 pg (27.0-31.0); MEAN CORPUSCULAR HGB CONC 32 g/dl (33.0-37.0); MONO # 0.7 (0.1-0.6); MONO % 13.1 % (1.7-9.3); PLATELET COUNT 268 K/mm3 (130-400); RED BLOOD COUNT 4.11 M/mm3 (4.10-5.30)
[2021-02-14 14:36] VITALS: BP 132/51; PULSE 63; TEMP 98.5
[2021-02-14 14:38] LABS: ALBUMIN 3.7 gm/dL (3.5-5.0); BILIRUBIN,TOTAL 0.6 mg/dL (0.0-1.0); CALCIUM 9.2 mg/dL (8.4-10.2); CREATININE, serum 0.69 (0.52-1.25); POTASSIUM 3.9 mmol/L (3.4-5.0); TOTAL PROTEIN 6.7 gm/dL (6.4-8.2)
== END 2021-02-14 16:00 | disposition home or self-care (01) ==
LOC: EUO 13:52
PROVIDERS: Internal Medicine
DX: K50.90 Crohn's disease, unspecified, without complications (principal); Z79.899 Other long term (current) drug therapy
CPT/HCPCS: J1200; J3380; J7050

== ENCOUNTER 2021-03-14 14:03 | Outpatient (CLI) | payer MEDICARE, BC ==
[2007-07-04 06:02] VITALS: BP 137/67
[~2021-03-14] VITALS: Ht 157.5 cm; Wt 86.6 kg
[2021-03-14 14:42] LABS: BASO % 0.5 % (0.0-2.0); EOS # 0.1 (0.0-0.7); EOS % 1.8 % (0-4.0); GRAN # 3.7 (1.4-6.5); GRAN % 59.1 % (42.2-75.2); HEMOGLOBIN 11.7 g/dl (12.5-16.0); LYMPH # 1.7 (1.2-3.4); LYMPH % 26.8 % (20.0-51.0); MEAN CELL VOLUME 93 fl (80.0-100.0); MEAN CORPUSCULAR HEMOGLOBIN 30 pg (27.0-31.0); MEAN CORPUSCULAR HGB CONC 32 g/dl (33.0-37.0); MEAN PLATELET VOLUME 9.8 fl (7.4-10.4); MONO # 0.7 (0.1-0.6); MONO % 11.3 % (1.7-9.3); PLATELET COUNT 252 K/mm3 (130-400); RED BLOOD COUNT 3.93 M/mm3 (4.10-5.30); REDCELL DISTRIBUTION WIDTH-CV 13.5 % (11.5-14.5)
[2021-03-14 14:43] LABS: HEMATOCRIT 36.7 % (37.0-47.0)
[2021-03-14 14:55] LABS: ALBUMIN 3.5 gm/dL (3.5-5.0); BILIRUBIN,TOTAL 0.5 mg/dL (0.0-1.0); CALCIUM 8.7 mg/dL (8.4-10.2); CREATININE, serum 0.85 (0.52-1.25); POTASSIUM 4.2 mmol/L (3.4-5.0); TOTAL PROTEIN 6.5 gm/dL (6.4-8.2)
[2021-03-14 15:36] VITALS: BP 143/79; PULSE 71; TEMP 98.3
[2021-03-14] MEDS ORDERED: CYANOCOBAL1000 MCG/1 IM (15:56)
[2021-03-14] MEDS ORDERED: PROTONIX 40MG T40 MG PO (15:58)
== END 2021-03-14 17:47 | disposition home or self-care (01) ==
LOC: EUO 14:03
PROVIDERS: Internal Medicine
DX: K50.818 Crohn's disease of both small and large intestine with other complication (principal); Z79.899 Other long term (current) drug therapy
CPT/HCPCS: J1200; J3380; J7050

== ENCOUNTER 2021-04-11 13:56 | Outpatient (CLI) | payer MEDICARE, BC ==
[2007-07-04 06:02] VITALS: BP 137/67
[~2021-04-11] VITALS: Ht 157.5 cm; Wt 65.7 kg
[~2021-04-11 13:56] MED LIST changes: +CYANOCOBAL1000 MCG/1 IM
[2021-04-11 14:46] LABS: BASO # 0.1 (0.0-0.2); BASO % 0.6 % (0.0-2.0); EOS # 0.2 (0.0-0.7); EOS % 1.8 % (0-4.0); GRAN # 6.1 (1.4-6.5); GRAN % 73.1 % (42.2-75.2); HEMOGLOBIN 11.7 g/dl (12.5-16.0); LYMPH # 1.4 (1.2-3.4); LYMPH % 17.3 % (20.0-51.0); MEAN CELL VOLUME 92 fl (80.0-100.0); MEAN CORPUSCULAR HEMOGLOBIN 30 pg (27.0-31.0); MEAN CORPUSCULAR HGB CONC 33 g/dl (33.0-37.0); MEAN PLATELET VOLUME 9.9 fl (7.4-10.4); MONO # 0.6 (0.1-0.6); PLATELET COUNT 229 K/mm3 (130-400); REDCELL DISTRIBUTION WIDTH-CV 13.9 % (11.5-14.5)
[2021-04-11 14:54] LABS: ALBUMIN 3.6 gm/dL (3.5-5.0); BILIRUBIN,TOTAL 0.6 mg/dL (0.0-1.0); CALCIUM 8.7 mg/dL (8.4-10.2); CREATININE, serum 0.68 (0.52-1.25); POTASSIUM 4.9 mmol/L (3.4-5.0); TOTAL PROTEIN 6.7 gm/dL (6.4-8.2)
[2021-04-11 15:55] VITALS: BP 167/72; PULSE 67; TEMP 98
[2021-04-11 16:05] VITALS: BP 173/74; PULSE 66
[2021-04-11 16:15] VITALS: BP 165/73; PULSE 62
[2021-04-11 16:25] VITALS: BP 173/71; PULSE 65
== END 2021-04-11 17:19 | disposition home or self-care (01) ==
LOC: EUO 13:56
PROVIDERS: Internal Medicine
DX: K51.90 Ulcerative colitis, unspecified, without complications (principal); Z79.899 Other long term (current) drug therapy
CPT/HCPCS: J1200; J3380; J7050

== ENCOUNTER 2021-05-09 13:53 | Outpatient (CLI) | payer MEDICARE, BC ==
[2007-07-04 06:02] VITALS: BP 137/67
[~2021-05-09] VITALS: Ht 157.5 cm; Wt 67.0 kg
[2021-05-09 14:26] LABS: BASO # 0.1 (0.0-0.2); BASO % 0.6 % (0.0-2.0); EOS # 0.1 (0.0-0.7); EOS % 1.4 % (0-4.0); GRAN # 5.5 (1.4-6.5); GRAN % 66.1 % (42.2-75.2); HEMOGLOBIN 11.4 g/dl (12.5-16.0); LYMPH # 1.8 (1.2-3.4); LYMPH % 21.3 % (20.0-51.0); MEAN CELL VOLUME 94 fl (80.0-100.0); MEAN CORPUSCULAR HEMOGLOBIN 31 pg (27.0-31.0); MEAN CORPUSCULAR HGB CONC 33 g/dl (33.0-37.0); MEAN PLATELET VOLUME 10.5 fl (7.4-10.4); MONO # 0.9 (0.1-0.6); MONO % 10.2 % (1.7-9.3); PLATELET COUNT 269 K/mm3 (130-400); RED BLOOD COUNT 3.72 M/mm3 (4.10-5.30); REDCELL DISTRIBUTION WIDTH-CV 14.3 % (11.5-14.5)
[2021-05-09 14:27] LABS: HEMATOCRIT 35.1 % (37.0-47.0)
[2021-05-09 15:28] VITALS: BP 144/57; PULSE 59; TEMP 97.7
[2021-05-12 16:33] LABS: BASO % 0.4 % (0.0-2.0); EOS # 0.2 (0.0-0.7); EOS % 2.1 % (0-4.0); GRAN # 5.7 (1.4-6.5); GRAN % 67.7 % (42.2-75.2); HEMOGLOBIN 11.2 g/dl (12.5-16.0); LYMPH # 1.6 (1.2-3.4); LYMPH % 19.1 % (20.0-51.0); MEAN CELL VOLUME 96 fl (80.0-100.0); MEAN CORPUSCULAR HEMOGLOBIN 31 pg (27.0-31.0); MEAN CORPUSCULAR HGB CONC 32 g/dl (33.0-37.0); MEAN PLATELET VOLUME 10.6 fl (7.4-10.4); MONO # 0.9 (0.1-0.6); MONO % 10.3 % (1.7-9.3); PLATELET COUNT 272 K/mm3 (130-400); RED BLOOD COUNT 3.64 M/mm3 (4.10-5.30); REDCELL DISTRIBUTION WIDTH-CV 13.7 % (11.5-14.5)
[2021-05-12 16:38] LABS: HEMATOCRIT 34.9 % (37.0-47.0)
[2021-05-12 16:48] LABS: ALBUMIN 3.5 gm/dL (3.4-4.8); BILIRUBIN,TOTAL 0.5 mg/dL (0.2-1.2); C-REACTIVE PROTEIN 0.6 mg/dL (0.00-0.50); CALCIUM 9.1 mg/dL (8.4-10.2); CREATININE, serum 1.04 mg/dL (0.57-1.11); POTASSIUM 4.4 mmol/L (3.5-4.5); TOTAL PROTEIN 6.5 gm/dL (6.2-8.1)
[2021-05-12 17:06] LABS: ERYTHROCYTE SEDIMENTATION RATE 11 mm/hr (0-30)
== END 2021-05-09 15:58 | disposition home or self-care (01) ==
LOC: EUO 13:53
PROVIDERS: Internal Medicine
DX: Z79.899 Other long term (current) drug therapy (principal)
CPT/HCPCS: J1200; J3380; J7050

== ENCOUNTER → 2021-05-13 | Outpatient (CLI) | payer MEDICARE, BC ==
[~2021-05-13] MED LIST changes: -ZOLOFT 25MG25 MG PO; +ZOLOFT 50MG50 MG PO
== END ==
LOC: ZCOL.LAB 15:20
DX: K50.118 Crohn's disease of large intestine with other complication (principal)

== ENCOUNTER 2021-05-26 13:49 | Emergency (ER) | payer MEDICARE, BC ==
[~2021-05-26] VITALS: Ht 157.5 cm; Wt 69.1 kg
[~2021-05-26 13:49] MED LIST changes: +ZOLOFT 25MG25 MG PO; -ZOLOFT 50MG50 MG PO
[2021-05-26 14:00] VITALS: TEMP 98.5
[2021-05-26 15:00] LABS: BASO % 0.3 % (0.0-2.0); EOS % 0.4 % (0-4.0); GRAN # 7.8 K/mm3 (1.4-6.5); HEMOGLOBIN 11.4 g/dl (12.5-16.0); LYMPH # 1.5 K/mm3 (1.2-3.4); LYMPH % 14.1 % (20.0-51.0); MEAN CELL VOLUME 98 fl (80.0-100.0); MEAN CORPUSCULAR HEMOGLOBIN 31 pg (27.0-31.0); MEAN CORPUSCULAR HGB CONC 32 g/dl (33.0-37.0); MEAN PLATELET VOLUME 10.2 fl (7.4-10.4); MONO # 1.1 K/mm3 (0.1-0.6); MONO % 10.9 % (1.7-9.3); PLATELET COUNT 245 K/mm3 (130-400); RED BLOOD COUNT 3.68 M/mm3 (4.10-5.30); REDCELL DISTRIBUTION WIDTH-CV 14.1 % (11.5-14.5)
[2021-05-26 15:02] LABS: HEMATOCRIT 35.9 % (37.0-47.0)
[2021-05-26 15:23] LABS: ALANINE AMINOTRANSFERASE 41 U/L (0-55); ALBUMIN 3.3 gm/dL (3.4-4.8); ALKALINE PHOSPHATASE 131 U/L (0-750); ANION GAP 9 mmol/L (7-16); AST,SGOT 62 U/L (5-34); BILIRUBIN,TOTAL 0.9 mg/dL (0.2-1.2); BLOOD UREA NITROGEN 17 mg/dL (10-20); CALCIUM 9.5 mg/dL (8.4-10.2); CARBON DIOXIDE 24 mmol/L (23-31); CHLORIDE 110 mmol/L (98-107); CREATININE, serum 0.82 mg/dL (0.57-1.11); GLUCOSE 130 mg/dL (70-99); POTASSIUM 4.4 mmol/L (3.5-4.5); SODIUM 143 mmol/L (136-145)
[2021-05-26 15:29] LABS: TROPONIN-I < 0.010 ng/mL (0.00-0.033)
[2021-05-26 15:50] VITALS: BP 153/83; PULSE 76
== END 2021-05-26 15:50 | disposition home or self-care (01) ==
LOC: COL.ER 13:49
PROVIDERS: Physician Assistant
DX: S80.01XA Contusion of right knee, initial encounter (principal); I10 Essential (primary) hypertension; E03.9 Hypothyroidism, unspecified; E11.9 Type 2 diabetes mellitus without complications; J45.909 Unspecified asthma, uncomplicated; Z87.891 Personal history of nicotine dependence; Z79.890 Hormone replacement therapy; Z79.899 Other long term (current) drug therapy; W18.30XA Fall on same level, unspecified, initial encounter; Y92.090 Kitchen in other non-institutional residence as the place of occurrence of the external cause

== ENCOUNTER 2021-06-06 13:48 | Outpatient (CLI) | payer MEDICARE, BC ==
[2007-07-04 06:02] VITALS: BP 137/67
[~2021-06-06] VITALS: Ht 157.5 cm; Wt 69.4 kg
[2021-06-06 14:27] LABS: BASO # 0.1 K/mm3 (0.0-0.2); BASO % 0.8 % (0.0-2.0); EOS # 0.2 K/mm3 (0.0-0.7); EOS % 2.5 % (0-4.0); GRAN # 5.4 K/mm3 (1.4-6.5); GRAN % 67.6 % (42.2-75.2); HEMATOCRIT 40.6 % (37.0-47.0); HEMOGLOBIN 12.5 g/dl (12.5-16.0); LYMPH # 1.8 K/mm3 (1.2-3.4); LYMPH % 22.1 % (20.0-51.0); MEAN CELL VOLUME 99 fl (80.0-100.0); MEAN CORPUSCULAR HEMOGLOBIN 31 pg (27.0-31.0); MEAN CORPUSCULAR HGB CONC 31 g/dl (33.0-37.0); MONO # 0.6 K/mm3 (0.1-0.6); MONO % 6.9 % (1.7-9.3); PLATELET COUNT 304 K/mm3 (130-400); RED BLOOD COUNT 4.09 M/mm3 (4.10-5.30); REDCELL DISTRIBUTION WIDTH-CV 13.3 % (11.5-14.5)
[2021-06-06 14:39] LABS: ALBUMIN 3.5 gm/dL (3.4-4.8); BILIRUBIN,TOTAL 0.5 mg/dL (0.2-1.2); CALCIUM 9.5 mg/dL (8.4-10.2); CREATININE, serum 0.84 mg/dL (0.57-1.11); POTASSIUM 3.9 mmol/L (3.5-4.5); TOTAL PROTEIN 7.1 gm/dL (6.2-8.1)
[2021-06-06 15:24] VITALS: BP 138/81; PULSE 71; TEMP 98.5
== END 2021-06-06 19:58 | disposition home or self-care (01) ==
LOC: EUO 13:48
PROVIDERS: Internal Medicine
DX: Z79.899 Other long term (current) drug therapy (principal)
CPT/HCPCS: J1200; J3380; J7050

== ENCOUNTER 2021-07-07 13:44 | Outpatient (CLI) | payer MEDICARE, BC ==
[2007-07-04 06:02] VITALS: BP 137/67
[~2021-07-07] VITALS: Ht 157.5 cm; Wt 72.4 kg
[2021-07-07 14:48] LABS: BASO % 0.5 % (0.0-2.0); EOS # 0.2 K/mm3 (0.0-0.7); EOS % 2.2 % (0-4.0); GRAN # 4.9 K/mm3 (1.4-6.5); GRAN % 65.5 % (42.2-75.2); HEMOGLOBIN 11.5 g/dl (12.5-16.0); LYMPH # 1.5 K/mm3 (1.2-3.4); LYMPH % 20.2 % (20.0-51.0); MEAN CELL VOLUME 96 fl (80.0-100.0); MEAN CORPUSCULAR HEMOGLOBIN 31 pg (27.0-31.0); MEAN CORPUSCULAR HGB CONC 32 g/dl (33.0-37.0); MEAN PLATELET VOLUME 10.3 fl (7.4-10.4); MONO # 0.8 K/mm3 (0.1-0.6); MONO % 11.3 % (1.7-9.3); PLATELET COUNT 240 K/mm3 (130-400); RED BLOOD COUNT 3.76 M/mm3 (4.10-5.30); REDCELL DISTRIBUTION WIDTH-CV 13.3 % (11.5-14.5)
[2021-07-07 14:49] LABS: HEMATOCRIT 36.1 % (37.0-47.0)
[2021-07-07 15:09] LABS: ALBUMIN 3.4 gm/dL (3.4-4.8); BILIRUBIN,TOTAL 0.4 mg/dL (0.2-1.2); CREATININE, serum 0.79 mg/dL (0.57-1.11); POTASSIUM 4.2 mmol/L (3.5-4.5); TOTAL PROTEIN 6.6 gm/dL (6.2-8.1)
[2021-07-07 15:28] VITALS: BP 169/82; PULSE 74; TEMP 97.6
== END 2021-07-07 16:21 | disposition home or self-care (01) ==
LOC: EUO 13:44
PROVIDERS: Internal Medicine Gastroenterology
DX: K50.90 Crohn's disease, unspecified, without complications (principal); Z79.899 Other long term (current) drug therapy
CPT/HCPCS: J1200; J3380; J7050

== ENCOUNTER 2021-08-04 13:52 | Outpatient (CLI) | payer MEDICARE, BC ==
[2007-07-04 06:02] VITALS: BP 137/67
[~2021-08-04] VITALS: Ht 157.5 cm; Wt 73.8 kg
[~2021-08-04 13:52] MED LIST changes: -ZOLOFT 25MG25 MG PO; +ZOLOFT 50MG50 MG PO
[2021-08-04 14:18] VITALS: BP 145/78; PULSE 75; TEMP 98.4
[2021-08-04 14:19] LABS: BASO # 0.1 K/mm3 (0.0-0.2); BASO % 0.7 % (0.0-2.0); EOS # 0.2 K/mm3 (0.0-0.7); GRAN # 5.1 K/mm3 (1.4-6.5); GRAN % 68.5 % (42.2-75.2); HEMATOCRIT 38.3 % (37.0-47.0); HEMOGLOBIN 12.2 g/dl (12.5-16.0); LYMPH # 1.6 K/mm3 (1.2-3.4); LYMPH % 21.4 % (20.0-51.0); MEAN CELL VOLUME 96 fl (80.0-100.0); MEAN CORPUSCULAR HEMOGLOBIN 30 pg (27-31); MEAN CORPUSCULAR HGB CONC 32 g/dl (33.0-37.0); MEAN PLATELET VOLUME 10.3 fl (7.4-10.4); MONO # 0.5 K/mm3 (0.1-0.6); MONO % 7.1 % (1.7-9.3); PLATELET COUNT 244 K/mm3 (130-400); RED BLOOD COUNT 4.01 M/mm3 (4.10-5.30); REDCELL DISTRIBUTION WIDTH-CV 13.3 % (11.5-14.5)
[2021-08-04 14:41] LABS: ALBUMIN 3.5 gm/dL (3.4-4.8); BILIRUBIN,TOTAL 0.4 mg/dL (0.2-1.2); CALCIUM 8.9 mg/dL (8.4-10.2); CREATININE, serum 0.8 mg/dL (0.57-1.11); POTASSIUM 4.1 mmol/L (3.5-4.5); TOTAL PROTEIN 6.8 gm/dL (6.2-8.1)
--- NOTE | 2021-08-04 15:55 | NUR ---
INT DC'd with catheter intact. Pt ambulates out from dept with steady gait.
== END 2021-08-04 16:00 | disposition home or self-care (01) ==
LOC: EUO 13:52
PROVIDERS: Internal Medicine
DX: K50.90 Crohn's disease, unspecified, without complications (principal); Z79.899 Other long term (current) drug therapy
CPT/HCPCS: J1200; J3380; J7050

== ENCOUNTER 2021-09-05 13:06 | Outpatient (CLI) | payer MEDICARE, BC ==
[2007-07-04 06:02] VITALS: BP 137/67
[~2021-09-05] VITALS: Ht 157.5 cm; Wt 75.8 kg
[2021-09-05 13:44] LABS: BASO # 0.1 K/mm3 (0.0-0.2); BASO % 0.7 % (0.0-2.0); EOS # 0.2 K/mm3 (0.0-0.7); EOS % 2.8 % (0.0-4.0); GRAN # 4.8 K/mm3 (1.4-6.5); GRAN % 68.2 % (42.2-75.2); HEMATOCRIT 37.9 % (37.0-47.0); HEMOGLOBIN 11.9 g/dl (12.5-16.0); LYMPH # 1.4 K/mm3 (1.2-3.4); LYMPH % 19.6 % (20.0-51.0); MEAN CELL VOLUME 95 fl (80.0-100.0); MEAN CORPUSCULAR HEMOGLOBIN 30 pg (27-31); MEAN CORPUSCULAR HGB CONC 31 g/dl (33.0-37.0); MEAN PLATELET VOLUME 10.1 fl (7.4-10.4); MONO # 0.6 K/mm3 (0.1-0.6); MONO % 8.3 % (1.7-9.3); PLATELET COUNT 242 K/mm3 (130-400); RED BLOOD COUNT 4.01 M/mm3 (4.10-5.30); REDCELL DISTRIBUTION WIDTH-CV 13.3 % (11.5-14.5)
[2021-09-05 14:03] LABS: ALBUMIN 3.6 gm/dL (3.4-4.8); BILIRUBIN,TOTAL 0.5 mg/dL (0.2-1.2); CALCIUM 8.9 mg/dL (8.4-10.2); CREATININE, serum 0.85 mg/dL (0.57-1.11); POTASSIUM 4.1 mmol/L (3.5-4.5); TOTAL PROTEIN 6.8 gm/dL (6.2-8.1)
[2021-09-05 14:04] VITALS: BP 131/59; PULSE 84; TEMP 98.2
== END 2021-09-05 18:10 | disposition home or self-care (01) ==
LOC: EUO 13:06
PROVIDERS: Internal Medicine
DX: K50.90 Crohn's disease, unspecified, without complications (principal); Z79.899 Other long term (current) drug therapy
CPT/HCPCS: J1200; J3380; J7050

== ENCOUNTER 2021-10-03 10:45 | Outpatient (CLI) | payer MEDICARE, BC ==
[2007-07-04 06:02] VITALS: BP 137/67
[~2021-10-03] VITALS: Ht 157.5 cm; Wt 78.7 kg
[2021-10-03 14:29] LABS: BASO % 0.4 % (0.0-2.0); EOS # 0.2 K/mm3 (0.0-0.7); EOS % 2.7 % (0.0-4.0); GRAN # 6.1 K/mm3 (1.4-6.5); HEMATOCRIT 37.7 % (37.0-47.0); HEMOGLOBIN 12.3 g/dl (12.5-16.0); LYMPH # 1.9 K/mm3 (1.2-3.4); LYMPH % 20.9 % (20.0-51.0); MEAN CELL VOLUME 93 fl (80.0-100.0); MEAN CORPUSCULAR HEMOGLOBIN 30 pg (27-31); MEAN CORPUSCULAR HGB CONC 33 g/dl (33.0-37.0); MEAN PLATELET VOLUME 10.5 fl (7.4-10.4); MONO # 0.7 K/mm3 (0.1-0.6); MONO % 7.7 % (1.7-9.3); PLATELET COUNT 248 K/mm3 (130-400); RED BLOOD COUNT 4.06 M/mm3 (4.10-5.30); REDCELL DISTRIBUTION WIDTH-CV 13.3 % (11.5-14.5)
[2021-10-03 14:48] LABS: ALBUMIN 3.6 gm/dL (3.4-4.8); BILIRUBIN,TOTAL 0.4 mg/dL (0.2-1.2); CREATININE, serum 0.89 mg/dL (0.57-1.11); POTASSIUM 5.1 mmol/L (3.5-4.5); TOTAL PROTEIN 7.5 gm/dL (6.2-8.1)
[2021-10-03 15:15] VITALS: BP 132/73; PULSE 68; TEMP 98.4
== END 2021-10-03 15:56 ==
LOC: EUO 10:45
PROVIDERS: Internal Medicine
DX: K50.90 Crohn's disease, unspecified, without complications (principal)
CPT/HCPCS: J1200; J3380; J7050

== ENCOUNTER 2021-10-09 15:41 | Emergency (ER) | payer MEDICARE, BC ==
[~2021-10-09] VITALS: Ht 157.6 cm; Wt 79.5 kg
[2021-10-09 16:57] LABS: BASO # 0.1 K/mm3 (0.0-0.2); BASO % 0.4 % (0.0-2.0); EOS # 0.1 K/mm3 (0.0-0.7); EOS % 0.6 % (0.0-4.0); GRAN # 10.5 K/mm3 (1.4-6.5); GRAN % 83.7 % (42.2-75.2); HEMATOCRIT 38.6 % (37.0-47.0); HEMOGLOBIN 12.4 g/dl (12.5-16.0); LYMPH # 1.1 K/mm3 (1.2-3.4); LYMPH % 8.4 % (20.0-51.0); MEAN CELL VOLUME 94 fl (80.0-100.0); MEAN CORPUSCULAR HEMOGLOBIN 30 pg (27-31); MEAN CORPUSCULAR HGB CONC 32 g/dl (33.0-37.0); MEAN PLATELET VOLUME 10.4 fl (7.4-10.4); MONO # 0.8 K/mm3 (0.1-0.6); MONO % 6.3 % (1.7-9.3); PLATELET COUNT 253 K/mm3 (130-400); RED BLOOD COUNT 4.12 M/mm3 (4.10-5.30); REDCELL DISTRIBUTION WIDTH-CV 13.3 % (11.5-14.5)
[2021-10-09 17:12] LABS: ALBUMIN 3.9 gm/dL (3.4-4.8); BILIRUBIN,TOTAL 0.4 mg/dL (0.2-1.2); CALCIUM 8.8 mg/dL (8.4-10.2); CREATININE, serum 0.91 mg/dL (0.57-1.11); POTASSIUM 4.3 mmol/L (3.5-4.5); TOTAL PROTEIN 7.2 gm/dL (6.2-8.1)
[2021-10-09 18:00] VITALS: BP 179/85; PULSE 88; TEMP 97.8
== END 2021-10-09 18:00 | disposition short-term general hospital (02) ==
LOC: COL.ER 15:41 → MEDICAL 16:56 → COL.ER 16:56
PROVIDERS: Student in an Organized Health Care Education/Training Program
DX: S06.5X9A Traumatic subdural hemorrhage with loss of consciousness of unspecified duration, initial encounter (principal); Z88.6 Allergy status to analgesic agent; Z79.02 Long term (current) use of antithrombotics/antiplatelets; Z79.82 Long term (current) use of aspirin; W18.2XXA Fall in (into) shower or empty bathtub, initial encounter

== ENCOUNTER → 2021-11-23 | Outpatient (CLI) | payer MEDICARE, BC ==
[~2021-11-23] MED LIST changes: +DULCOLAX S10 MG/SUPP RC; +IMODIUM 2MG CAPS2 MG PO; +KEPPRA1000 MG PO; +LIDODERM 5% PATC1 EA TP; +LOVENOX 4040 MG/0.4 SQ; +MILK OF MA400 MG/52 PO; +MYLANTA MAXIMU355 M1 PO; +SENNA-LAX8.6 MG PO; +TYLENOL 325MG325 MG PO; +TYLENOL SU650 MG/SUP RC; +VITAMIN B11000 MCG/M IM; +VOLTAREN GEL 1%1 TU TP; +ZOFRAN ODT4 MG PO
[2021-11-23 14:30] LABS: CLOSTRIDIUM DIFF A/B NEG; CLOSTRIDIUM DIFF A/B INTERP No C.diff present
== END ==
LOC: ZCOL.LAB 13:33
PROVIDERS: Internal Medicine
DX: A04.72 Enterocolitis due to Clostridium difficile, not specified as recurrent (principal)

== ENCOUNTER 2021-11-24 14:51 | Outpatient (CLI) | payer MEDICARE, BC ==
[2007-07-04 06:02] VITALS: BP 137/67
[~2021-11-24] VITALS: Ht 157.5 cm; Wt 72.5 kg
[~2021-11-24 14:51] MED LIST changes: -DULCOLAX S10 MG/SUPP RC; -IMODIUM 2MG CAPS2 MG PO; -KEPPRA1000 MG PO; -LIDODERM 5% PATC1 EA TP; -LOVENOX 4040 MG/0.4 SQ; -MILK OF MA400 MG/52 PO; -MYLANTA MAXIMU355 M1 PO; -SENNA-LAX8.6 MG PO; -TYLENOL 325MG325 MG PO; -TYLENOL SU650 MG/SUP RC; -VITAMIN B11000 MCG/M IM; -VOLTAREN GEL 1%1 TU TP; -ZOFRAN ODT4 MG PO
[2021-11-24 15:30] LABS: BASO % 0.5 % (0.0-2.0); EOS # 0.2 K/mm3 (0.0-0.7); EOS % 2.9 % (0.0-4.0); GRAN # 5.4 K/mm3 (1.4-6.5); HEMATOCRIT 33.8 % (37.0-47.0); HEMOGLOBIN 10.9 g/dl (12.5-16.0); LYMPH # 1.8 K/mm3 (1.2-3.4); LYMPH % 22.1 % (20.0-51.0); MEAN CELL VOLUME 90 fl (80.0-100.0); MEAN CORPUSCULAR HEMOGLOBIN 29 pg (27-31); MEAN CORPUSCULAR HGB CONC 32 g/dl (33.0-37.0); MEAN PLATELET VOLUME 10.3 fl (7.4-10.4); MONO # 0.6 K/mm3 (0.1-0.6); MONO % 7.3 % (1.7-9.3); PLATELET COUNT 226 K/mm3 (130-400); RED BLOOD COUNT 3.77 M/mm3 (4.10-5.30); REDCELL DISTRIBUTION WIDTH-CV 13.3 % (11.5-14.5)
[2021-11-24 15:39] LABS: ALBUMIN 3.5 gm/dL (3.4-4.8); BILIRUBIN,TOTAL 0.3 mg/dL (0.2-1.2); CALCIUM 8.9 mg/dL (8.4-10.2); CREATININE, serum 0.84 mg/dL (0.57-1.11); POTASSIUM 3.5 mmol/L (3.5-4.5); TOTAL PROTEIN 6.6 gm/dL (6.2-8.1)
[2021-11-24 16:01] VITALS: BP 132/81; PULSE 92; TEMP 98.2
--- NOTE | 2021-11-24 17:00 | NUR ---
INT DC'd with catheter intact. She is assisted out by wheelchair to meet [facility] transport.
[2021-11-24] MEDS ORDERED: DULCOLAX S10 MG/SUPP RC (18:12)
[2021-11-24] MEDS ORDERED: TYLENOL SU650 MG/SUP RC (18:12)
[2021-11-24] MEDS ORDERED: COLACE 100100 MG/CAP PO (18:13)
[2021-11-24] MEDS ORDERED: VITAMIN B11000 MCG/M IM (18:13)
[2021-11-24] MEDS ORDERED: IMODIUM 2MG CAPS2 MG PO (18:14)
[2021-11-24] MEDS ORDERED: KEPPRA1000 MG PO (18:15)
[2021-11-24] MEDS ORDERED: LIDODERM 5% PATC1 EA TP (18:16)
[2021-11-24] MEDS ORDERED: LOVENOX 4040 MG/0.4 SQ (18:16)
[2021-11-24] MEDS ORDERED: MILK OF MA400 MG/52 PO (18:17)
[2021-11-24] MEDS ORDERED: MIRALAX PA17 GM/Dose PO (18:17)
[2021-11-24] MEDS ORDERED: SENNA-LAX8.6 MG PO (18:18)
[2021-11-24] MEDS ORDERED: MYLANTA MAXIMU355 M1 PO (18:18)
[2021-11-24] MEDS ORDERED: VOLTAREN GEL 1%1 TU TP (18:19)
[2021-11-24] MEDS ORDERED: TYLENOL 325MG325 MG PO (18:20)
[2021-11-24] MEDS ORDERED: ZOFRAN ODT4 MG PO (18:20)
== END 2021-11-24 17:00 | disposition home or self-care (01) ==
LOC: EUO 14:51
PROVIDERS: Internal Medicine
DX: K50.90 Crohn's disease, unspecified, without complications (principal)
CPT/HCPCS: J1200; J3380; J7050

== ENCOUNTER 2021-12-22 14:44 | Outpatient (CLI) | payer MEDICARE, BC ==
[2007-07-04 06:02] VITALS: BP 137/67
[~2021-12-22] VITALS: Ht 157.5 cm; Wt 76.0 kg
[~2021-12-22 14:44] MED LIST changes: +DULCOLAX S10 MG/SUPP RC; +IMODIUM 2MG CAPS2 MG PO; +KEPPRA1000 MG PO; +LIDODERM 5% PATC1 EA TP; +LOVENOX 4040 MG/0.4 SQ; +MILK OF MA400 MG/52 PO; +MYLANTA MAXIMU355 M1 PO; +SENNA-LAX8.6 MG PO; +TYLENOL 325MG325 MG PO; +TYLENOL SU650 MG/SUP RC; +VITAMIN B11000 MCG/M IM; +VOLTAREN GEL 1%1 TU TP; +ZOFRAN ODT4 MG PO
[2021-12-22 15:18] LABS: BASO # 0.1 K/mm3 (0.0-0.2); BASO % 0.6 % (0.0-2.0); EOS # 0.3 K/mm3 (0.0-0.7); EOS % 2.8 % (0.0-4.0); GRAN # 6.7 K/mm3 (1.4-6.5); GRAN % 66.3 % (42.2-75.2); HEMOGLOBIN 10.4 g/dl (12.5-16.0); LYMPH # 2.1 K/mm3 (1.2-3.4); LYMPH % 20.6 % (20.0-51.0); MEAN CELL VOLUME 87 fl (80.0-100.0); MEAN CORPUSCULAR HEMOGLOBIN 28 pg (27-31); MEAN CORPUSCULAR HGB CONC 32 g/dl (33.0-37.0); MEAN PLATELET VOLUME 9.9 fl (7.4-10.4); MONO # 0.9 K/mm3 (0.1-0.6); MONO % 9.3 % (1.7-9.3); PLATELET COUNT 269 K/mm3 (130-400); RED BLOOD COUNT 3.78 M/mm3 (4.10-5.30); REDCELL DISTRIBUTION WIDTH-CV 13.9 % (11.5-14.5)
[2021-12-22 15:19] LABS: HEMATOCRIT 32.9 % (37.0-47.0)
[2021-12-22 16:06] VITALS: BP 157/77; PULSE 66; TEMP 98.3
[2021-12-22 16:10] LABS: ALBUMIN 3.2 gm/dL (3.4-4.8); BILIRUBIN,TOTAL 0.3 mg/dL (0.2-1.2); CALCIUM 8.5 mg/dL (8.4-10.2); CREATININE, serum 0.94 mg/dL (0.57-1.11); POTASSIUM 3.8 mmol/L (3.5-4.5); TOTAL PROTEIN 6.2 gm/dL (6.2-8.1)
== END 2021-12-22 17:15 ==
LOC: EUO 14:44
PROVIDERS: Internal Medicine
DX: K50.90 Crohn's disease, unspecified, without complications (principal)
CPT/HCPCS: J1200; J3380; J7050

== ENCOUNTER → 2021-12-27 | Outpatient (REF) ==
[2021-12-27 11:21] LABS: COLLECTION METHOD RANDOM VOIDED
[2021-12-27 11:30] LABS: AMORPHOUS CRYSTAL Present (NOT PRESENT); MUCOUS Present (NOT PRESENT); PH 7 (5-8); SQUAMOUS EPITHELIAL 0-2 /hpf (0-10); URINE APPEARANCE Cloudy (CLEAR/HAZY); URINE BACTERIA Moderate /hpf (NONE SEEN); URINE BILIRUBIN Negative (NEGATIVE); URINE BLOOD 1+ (NEGATIVE); URINE COLOR Yellow (YELLOW); URINE GLUCOSE Negative (NEGATIVE); URINE KETONE Negative (NEGATIVE); URINE LEUKOCYTE ESTERASE 2+ (NEGATIVE); URINE NITRATE Negative (NEGATIVE); URINE PROTEIN(semi-quant) 1+ (NEGATIVE); URINE UROBILINOGEN Negative (NEGATIVE); URINE WBC 20-50 /hpf (0-2)
== END ==
LOC: ZCOL.LAB 11:19
DX: N39.0 Urinary tract infection, site not specified (principal)

== ENCOUNTER 2022-01-19 15:02 | Outpatient (CLI) | payer MEDICARE, BC ==
[2007-07-04 06:02] VITALS: BP 137/67
[~2022-01-19] VITALS: Ht 157.5 cm; Wt 75.4 kg
[2022-01-19 15:34] LABS: BASO # 0.1 K/mm3 (0.0-0.2); BASO % 0.5 % (0.0-2.0); EOS # 0.3 K/mm3 (0.0-0.7); EOS % 2.6 % (0.0-4.0); GRAN # 7.1 K/mm3 (1.4-6.5); GRAN % 68.7 % (42.2-75.2); HEMOGLOBIN 10.9 g/dl (12.5-16.0); LYMPH # 1.9 K/mm3 (1.2-3.4); LYMPH % 18.4 % (20.0-51.0); MEAN CELL VOLUME 86 fl (80.0-100.0); MEAN CORPUSCULAR HEMOGLOBIN 27 pg (27-31); MEAN CORPUSCULAR HGB CONC 31 g/dl (33.0-37.0); MEAN PLATELET VOLUME 10.6 fl (7.4-10.4); MONO % 9.4 % (1.7-9.3); PLATELET COUNT 204 K/mm3 (130-400); RED BLOOD COUNT 4.07 M/mm3 (4.10-5.30); REDCELL DISTRIBUTION WIDTH-CV 16.2 % (11.5-14.5)
[2022-01-19 15:52] LABS: ALBUMIN 2.9 gm/dL (3.4-4.8); BILIRUBIN,TOTAL 0.3 mg/dL (0.2-1.2); CALCIUM 8.8 mg/dL (8.4-10.2); CREATININE, serum 0.85 mg/dL (0.57-1.11); POTASSIUM 3.9 mmol/L (3.5-4.5); TOTAL PROTEIN 6.5 gm/dL (6.2-8.1)
[2022-01-19 16:59] VITALS: BP 152/82; PULSE 84; TEMP 97.8
== END 2022-01-19 17:45 ==
LOC: EUO 15:02
PROVIDERS: Internal Medicine
DX: K50.90 Crohn's disease, unspecified, without complications (principal)
CPT/HCPCS: J1200; J3380; J7050

== ENCOUNTER 2022-02-20 14:54 | Outpatient (CLI) | payer MEDICARE, BC ==
[2007-07-04 06:02] VITALS: BP 137/67
[~2022-02-20] VITALS: Ht 157.5 cm; Wt 75.2 kg
[2022-02-20 15:46] LABS: BASO # 0.1 K/mm3 (0.0-0.2); BASO % 0.6 % (0.0-2.0); EOS # 0.9 K/mm3 (0.0-0.7); EOS % 8.9 % (0.0-4.0); GRAN # 5.9 K/mm3 (1.4-6.5); GRAN % 59.2 % (42.2-75.2); HEMOGLOBIN 10.7 g/dl (12.5-16.0); LYMPH % 19.8 % (20.0-51.0); MEAN CELL VOLUME 85 fl (80.0-100.0); MEAN CORPUSCULAR HEMOGLOBIN 27 pg (27-31); MEAN CORPUSCULAR HGB CONC 32 g/dl (33.0-37.0); MEAN PLATELET VOLUME 9.7 fl (7.4-10.4); MONO # 1.1 K/mm3 (0.1-0.6); MONO % 11.2 % (1.7-9.3); PLATELET COUNT 195 K/mm3 (130-400); RED BLOOD COUNT 3.97 M/mm3 (4.10-5.30); REDCELL DISTRIBUTION WIDTH-CV 17.4 % (11.5-14.5)
[2022-02-20 15:47] LABS: HEMATOCRIT 33.7 % (37.0-47.0)
[2022-02-20 16:11] LABS: ALBUMIN 3.1 gm/dL (3.4-4.8); BILIRUBIN,TOTAL 0.3 mg/dL (0.2-1.2); CALCIUM 8.7 mg/dL (8.4-10.2); CREATININE, serum 0.68 mg/dL (0.57-1.11); POTASSIUM 3.3 mmol/L (3.5-4.5); TOTAL PROTEIN 6.6 gm/dL (6.2-8.1)
[2022-02-20 16:32] VITALS: BP 118/75; PULSE 82; TEMP 97.8
[2022-02-20 17:39] VITALS: BP 138/79; PULSE 78
== END 2022-02-20 20:31 | disposition home or self-care (01) ==
LOC: EUO 14:54
PROVIDERS: Internal Medicine Gastroenterology
DX: K50.90 Crohn's disease, unspecified, without complications (principal)
CPT/HCPCS: J1200; J3380; J7050

== ENCOUNTER → 2022-03-02 | Outpatient (CLI) | payer MEDICARE, BC ==
[~2022-03-02] MED LIST changes: -CITRACAL + D CA1 TAB PO; +OS-CAL 500 + D1 TAB PO
[2022-03-02 12:42] LABS: BASO % 0.5 % (0.0-2.0); EOS # 0.6 K/mm3 (0.0-0.7); EOS % 7.4 % (0.0-4.0); ERYTHROCYTE SEDIMENTATION RATE 16 mm/hr (0-30); GRAN # 4.5 K/mm3 (1.4-6.5); GRAN % 55.7 % (42.2-75.2); HEMATOCRIT 34.2 % (37.0-47.0); HEMOGLOBIN 10.5 g/dl (12.5-16.0); LYMPH # 1.7 K/mm3 (1.2-3.4); LYMPH % 21.3 % (20.0-51.0); MEAN CELL VOLUME 86 fl (80.0-100.0); MEAN CORPUSCULAR HEMOGLOBIN 26 pg (27-31); MEAN CORPUSCULAR HGB CONC 31 g/dl (33.0-37.0); MEAN PLATELET VOLUME 11.3 fl (7.4-10.4); MONO # 1.1 K/mm3 (0.1-0.6); MONO % 14.1 % (1.7-9.3); PLATELET COUNT 188 K/mm3 (130-400); REDCELL DISTRIBUTION WIDTH-CV 18.1 % (11.5-14.5)
== END ==
LOC: ZCOL.LAB 11:25
PROVIDERS: Nurse Practitioner Family
DX: K50.118 Crohn's disease of large intestine with other complication (principal)

== ENCOUNTER → 2022-03-03 | Outpatient (CLI) | payer MEDICARE, BC ==
[2022-03-03 14:35] LABS: BILIRUBIN,TOTAL 0.4 mg/dL (0.2-1.2); C-REACTIVE PROTEIN 1.9 mg/dL (0.00-0.50); CALCIUM 8.8 mg/dL (8.4-10.2); CREATININE, serum 0.7 mg/dL (0.57-1.11); POTASSIUM 3.5 mmol/L (3.5-4.5); TOTAL PROTEIN 6.1 gm/dL (6.2-8.1)
== END ==
LOC: ZCOL.LAB 13:17
PROVIDERS: Nurse Practitioner Family
DX: K50.118 Crohn's disease of large intestine with other complication (principal)

== ENCOUNTER → 2022-03-16 | Outpatient (CLI) | payer MEDICARE, BC ==
[2022-03-16 19:21] LABS: COLLECTION METHOD CLEAN CATCH
[2022-03-16 19:50] LABS: AMORPHOUS CRYSTAL Present (NOT PRESENT); MUCOUS Present (NOT PRESENT); PH 8 (5-8); SQUAMOUS EPITHELIAL None Seen /hpf (0-10); URINE APPEARANCE Turbid (CLEAR/HAZY); URINE BACTERIA None Seen /hpf (NONE SEEN); URINE BLOOD 1+ (NEGATIVE); URINE COLOR Yellow (YELLOW); URINE GLUCOSE Negative (NEGATIVE); URINE KETONE Negative (NEGATIVE); URINE NITRATE Positive (NEGATIVE); URINE PROTEIN(semi-quant) 2+ (NEGATIVE); URINE UROBILINOGEN Negative (NEGATIVE); URINE WBC >50 /hpf (0-2)
== END ==
LOC: ZCOL.LAB 18:27
PROVIDERS: Internal Medicine
DX: N39.0 Urinary tract infection, site not specified (principal)

== ENCOUNTER → 2022-03-20 | Outpatient (CLI) | payer MEDICARE, BC ==
[2007-07-04 06:02] VITALS: BP 137/67
[~2022-03-20] VITALS: Ht 157.5 cm; Wt 76.4 kg
[2022-03-20 13:35] LABS: BASO % 0.4 % (0.0-2.0); EOS # 0.5 K/mm3 (0.0-0.7); EOS % 5.2 % (0.0-4.0); GRAN # 5.9 K/mm3 (1.4-6.5); GRAN % 63.2 % (42.2-75.2); HEMOGLOBIN 10.8 g/dl (12.5-16.0); LYMPH # 1.9 K/mm3 (1.2-3.4); MEAN CELL VOLUME 87 fl (80.0-100.0); MEAN CORPUSCULAR HEMOGLOBIN 27 pg (27-31); MEAN CORPUSCULAR HGB CONC 31 g/dl (33.0-37.0); MEAN PLATELET VOLUME 9.7 fl (7.4-10.4); MONO % 10.9 % (1.7-9.3); PLATELET COUNT 189 K/mm3 (130-400); RED BLOOD COUNT 3.98 M/mm3 (4.10-5.30); REDCELL DISTRIBUTION WIDTH-CV 17.6 % (11.5-14.5)
[2022-03-20 13:37] LABS: HEMATOCRIT 34.7 % (37.0-47.0)
[2022-03-20 13:52] LABS: BILIRUBIN,TOTAL 0.4 mg/dL (0.2-1.2); CALCIUM 8.8 mg/dL (8.4-10.2); CREATININE, serum 0.73 mg/dL (0.57-1.11); POTASSIUM 3.6 mmol/L (3.5-4.5); TOTAL PROTEIN 6.3 gm/dL (6.2-8.1)
[2022-03-20 14:13] VITALS: BP 137/68; PULSE 93; TEMP 97.6
--- NOTE | 2022-03-20 14:50 | NUR ---
I SPOKE TO KIMBERLY ANTOINE AT [facility] TO ADVISE HER OF GALLITO'S NEXT APPOINTMENT. I ALSO SPOKE WITH HER TO LET HER KNOW BRENDA CARE WAS DONE WHILE PT WAS HERE. SHE ADVISED THAT SHE WAS CONCERNED PT MAY HAVE A REACTION TO ZINC, PT HAS HAD SOME SLOUGHING OF SKIN THAT SEEMED RELATED TO APPLICATION OF ZINC BARRIER OINTMENT.
== END ==
LOC: EUO 12:45
PROVIDERS: Internal Medicine
DX: K50.90 Crohn's disease, unspecified, without complications (principal); N30.00 Acute cystitis without hematuria
CPT/HCPCS: J1200; J3380; J7050

== ENCOUNTER 2022-04-17 12:49 | Outpatient (CLI) | payer MEDICARE, BC ==
[2007-07-04 06:02] VITALS: BP 137/67
[~2022-04-17] VITALS: Ht 157.5 cm; Wt 77.3 kg
[2022-04-17 13:29] LABS: BASO % 0.4 % (0.0-2.0); EOS # 0.4 K/mm3 (0.0-0.7); EOS % 4.4 % (0.0-4.0); GRAN # 6.5 K/mm3 (1.4-6.5); GRAN % 69.2 % (42.2-75.2); HEMATOCRIT 34.3 % (37.0-47.0); HEMOGLOBIN 10.7 g/dl (12.5-16.0); LYMPH # 1.6 K/mm3 (1.2-3.4); LYMPH % 16.8 % (20.0-51.0); MEAN CELL VOLUME 87 fl (80.0-100.0); MEAN CORPUSCULAR HEMOGLOBIN 27 pg (27-31); MEAN CORPUSCULAR HGB CONC 31 g/dl (33.0-37.0); MEAN PLATELET VOLUME 9.4 fl (7.4-10.4); MONO # 0.8 K/mm3 (0.1-0.6); MONO % 8.8 % (1.7-9.3); PLATELET COUNT 284 K/mm3 (130-400); RED BLOOD COUNT 3.93 M/mm3 (4.10-5.30); REDCELL DISTRIBUTION WIDTH-CV 14.2 % (11.5-14.5)
[2022-04-17 13:46] LABS: BILIRUBIN,TOTAL 0.3 mg/dL (0.2-1.2); CALCIUM 8.8 mg/dL (8.4-10.2); CREATININE, serum 0.81 mg/dL (0.57-1.11); TOTAL PROTEIN 6.6 gm/dL (6.2-8.1)
[2022-04-17 13:47] LABS: POTASSIUM 2.7 mmol/L (3.5-4.5)
[2022-04-17 14:26] VITALS: BP 129/77; PULSE 87; TEMP 97.8
--- NOTE | 2022-04-17 15:10 | NUR ---
IV site wrapped with coban. Nurse communication form completed regarding pt's potassium level today, PO potassium given in EU and next infusion appt date for cassie. [facility] transport called to take pt back to their facility.
== END 2022-04-17 15:45 ==
LOC: EUO 12:49
PROVIDERS: Internal Medicine
DX: E87.6 Hypokalemia (principal)
CPT/HCPCS: J1200; J3380; J7050

== ENCOUNTER 2022-09-11 08:51 | Outpatient (CLI) | payer MEDICARE, BC ==
[2007-07-04 06:02] VITALS: BP 137/67
[~2022-09-11] VITALS: Ht 152.4 cm; Wt 73.4 kg
[~2022-09-11 08:51] MED LIST changes: +ASPIRIN 81M81 MG/TA2 PO; +CIPRO 500MG TA500 MG PO; +CRANBERRY FRUI425 MG PO; +CRANBERRY450 MG PO; +CRANBERRY500 M3 PO; +DEBROX OT; +DULCOLAX STOOL100 MG PO; +ENTYVIO IV; +ESTRACE0.1 MG/GM VG; +ESTRADERM0.1 MG/24 TD; +FLORINEF ACETA0.1 MG PO; +GEMTESA75 MG PO; +K-DUR20 MEQ PO; +K-TAB20 PO; +LOTRISONE CREAM15 GM TP; +MELATONIN5 M1 PO; +MULTIPLE VITAMI1 TA1 PO; +MYLANTA 150 ML150 M1 PO; +NYSTATIN CREAM15 GM TP; +NYSTATIN100000 U/1 TOP; +PROBIOTIC PEAR1 EAC3 PO; +PROBIOTICA100 Milli1 PO; +RICOLA HERB TH1 EACH MM; +SINEMET 25/101 UDTAB PO; +[UNRECOGNIZED DRUG - OTHER] PO
[2022-09-11 09:47] LABS: BASO # 0.1 K/mm3 (0.0-0.2); BASO % 0.7 % (0.0-2.0); EOS # 0.3 K/mm3 (0.0-0.7); EOS % 2.9 % (0.0-4.0); GRAN # 6.9 K/mm3 (1.4-6.5); GRAN % 66.7 % (42.2-75.2); HEMATOCRIT 38.2 % (37.0-47.0); HEMOGLOBIN 12.1 g/dl (12.5-16.0); LYMPH # 1.9 K/mm3 (1.2-3.4); LYMPH % 18.2 % (20.0-51.0); MEAN CELL VOLUME 88 fl (80.0-100.0); MEAN CORPUSCULAR HEMOGLOBIN 28 pg (27-31); MEAN CORPUSCULAR HGB CONC 32 g/dl (33.0-37.0); MEAN PLATELET VOLUME 9.9 fl (7.4-10.4); MONO # 1.1 K/mm3 (0.1-0.6); MONO % 11.1 % (1.7-9.3); PLATELET COUNT 209 K/mm3 (130-400); RED BLOOD COUNT 4.36 M/mm3 (4.10-5.30); REDCELL DISTRIBUTION WIDTH-CV 14.6 % (11.5-14.5)
[2022-09-11 10:12] LABS: ALBUMIN 3.3 gm/dL (3.4-4.8); BILIRUBIN,TOTAL 0.5 mg/dL (0.2-1.2); CALCIUM 9.2 mg/dL (8.4-10.2); CREATININE, serum 1.02 mg/dL (0.57-1.11); POTASSIUM 4.4 mmol/L (3.5-4.5); TOTAL PROTEIN 6.8 gm/dL (6.2-8.1)
[2022-09-11 10:40] VITALS: BP 151/78; PULSE 78; TEMP 98.7
--- NOTE | 2022-09-11 12:30 | NUR ---
Pt has departed, escorted to exit by her own wheelchair from [facility]. Dong from [facility] transport picked her up. I called report to Jossy ANTOINE and relayed next appt info. Incontinence and roger care provided prior to pt's discharge. zinc ointment to perineum. Card for next appointment sent with pt as well.
== END 2022-09-11 15:36 | disposition home or self-care (01) ==
LOC: EUO 08:51
PROVIDERS: Internal Medicine
DX: K50.90 Crohn's disease, unspecified, without complications (principal)
CPT/HCPCS: J1200; J3380; J7050

== ENCOUNTER 2022-10-09 11:02 | Outpatient (CLI) | payer MEDICARE, BC ==
[2007-07-04 06:02] VITALS: BP 137/67
--- NOTE | 2022-09-08 11:34 | NUR ---
PT HAS NOT ARRIVED FOR APPOINTMENT. CALL PLACED TO [facility] TO CHECK ON PATIENT, BUT NO ANSWER. WILL ATTEMPT AGAIN LATER.
[~2022-10-09] VITALS: Ht 152.4 cm; Wt 71.0 kg
[2022-10-09 12:05] LABS: ALBUMIN 3.4 gm/dL (3.4-4.8); BILIRUBIN,TOTAL 0.7 mg/dL (0.2-1.2); CALCIUM 9.5 mg/dL (8.4-10.2); CREATININE, serum 0.88 mg/dL (0.57-1.11); POTASSIUM 3.8 mmol/L (3.5-4.5)
[2022-10-09 12:07] LABS: BASO # 0.1 K/mm3 (0.0-0.2); BASO % 0.6 % (0.0-2.0); EOS # 0.3 K/mm3 (0.0-0.7); EOS % 3.1 % (0.0-4.0); GRAN # 6.9 K/mm3 (1.4-6.5); GRAN % 65.4 % (42.2-75.2); HEMATOCRIT 43.3 % (37.0-47.0); HEMOGLOBIN 13.4 g/dl (12.5-16.0); LYMPH # 2.5 K/mm3 (1.2-3.4); LYMPH % 23.6 % (20.0-51.0); MEAN CELL VOLUME 89 fl (80.0-100.0); MEAN CORPUSCULAR HEMOGLOBIN 28 pg (27-31); MEAN CORPUSCULAR HGB CONC 31 g/dl (33.0-37.0); MONO # 0.7 K/mm3 (0.1-0.6); MONO % 6.9 % (1.7-9.3); PLATELET COUNT 203 K/mm3 (130-400); RED BLOOD COUNT 4.88 M/mm3 (4.10-5.30); REDCELL DISTRIBUTION WIDTH-CV 14.5 % (11.5-14.5)
[2022-10-09 13:00] VITALS: BP 162/94; PULSE 88
[2022-10-09 13:30] VITALS: BP 148/78; PULSE 78
== END 2022-10-09 14:10 | disposition home or self-care (01) ==
LOC: EUO 11:02
PROVIDERS: Internal Medicine
DX: K50.90 Crohn's disease, unspecified, without complications (principal); Z79.899 Other long term (current) drug therapy
CPT/HCPCS: J1200; J3380; J7050